=== PATIENT | male | born 1950 | race Caucasian/White ===

== ENCOUNTER 2016-07-20 01:50 | Inpatient (IN) | payer OTHER, MEDICARE ==
[2016-07-20] VITALS (31 sets, daily range): BP systolic 128–184; BP diastolic 58–89; PULSE 74–122; RESP 14–26; TEMP 97.7–98.7; O2SAT 90–98
[~2016-07-20] VITALS: Ht 188 cm; Wt 156.7 kg
[~2016-07-20 01:50] MED LIST: AMLO10 PO; DULO30 PO; LEVEMIR SQ; LORTA5 PO; LOSA25TA31 PO; LYRI200C PO; SYMB160A INH; VENTAER INH
[2016-07-20] MEDS ORDERED: LEVEMIR SQ (02:02)
[2016-07-20] MEDS ORDERED: VENTAER INH (02:02)
[2016-07-20] MEDS ORDERED: DULO1CAP2 PO (02:02)
[2016-07-20] MEDS ORDERED: COZA25TA PO (02:02)
[2016-07-20] MEDS ORDERED: SYMB160A INH (02:02)
[2016-07-20] MEDS ORDERED: LYRI200C PO (02:02)
[2016-07-20] MEDS ORDERED: LISI40TA PO (02:10)
[2016-07-20] MEDS: RESP: ALBUTEROL 2.5 MG/IPRATROPIUM 0.5 MG NEB (SCH) INH ×5 (02:29→20:41)
[2016-07-20] MEDS ORDERED: SODIUM CHLORIDE 0.9% FLUSH 5 ML FLUSH IVF PRN (02:30)
[2016-07-20] MEDS ORDERED: AZITHROMYCIN INJ 500 MG in SODIUM CHLOR 0.9% 250 ML INJ 250 ML IV ONE (02:30)
[2016-07-20] MEDS ORDERED: PREGABALIN 100 MG CAP PO ONE (02:30)
[2016-07-20] MEDS ORDERED: LORazepam 2 MG/ML VIAL IV PUSH ONE (02:30)
[2016-07-20] MEDS ORDERED: cefTRIAXone INJ 1,000 MG in SODIUM CHLORIDE 0.9% INJ 100 ML IV ONE (02:30)
--- NOTE | 2016-07-20 02:30 | PD ---
HPI Chief Complaint: Respiratory Distress Time Seen by Provider: 01:57 Travel History International Travel<30 days: No Contact w/Intl Traveler<30days: No Traveled to known affect area: No History of Present Illness HPI The patient is a 66 year old male who presents to the [facility] emergency department with a history of shortness of breath that he reports began yesterday evening. The patient reports that over the last 2 days he has not been able to take his anxiety medication and his diabetic neuropathy medication. He reports that these 2 medications are usually kept together and have been misplaced in his apartment. The patient reports that he has had a cough over the past week that intermittently productive of yellow sputum. He denies having any fevers. He denies having any nausea, vomiting, or diarrhea, however his stool has been slightly loose compared to usual. The patient reports that his blood sugar has been ranging between the mid 200s to high 200s. He reports that he usually has better control of his blood sugar. The patient reports having a history of asthma, bronchitis, COPD. He denies having any prior history of myocardial infarction or congestive heart failure. The patient reports that his anxiety has been difficult to control since losing his Duloxetine. The patient denies any neck pain, chest pain, abdominal pain, urinary symptoms, or neurologic symptoms. The patient was brought in by ambulance services. The patient was noted to have O2 saturations on room air of 88%. The patient was given a nebulizer treatment of albuterol 1. The patient was given Solu-Medrol 125 mg IV. PFS Past Medical History Narrative Medical The patient's past medical history is significant for asthma, bronchitis, COPD, diabetic neuropathy, anxiety disorder, hypertension, history of skin cancer. Hx Anticoagulant Therapy: No Arthritis: Yes Asthma: Yes Autoimmune Disease: No Anxiety: Yes Depression: Yes Heart Rhythm Problems: No Cancer: Yes (skin cancer) Cardiovascular Problems: Yes High Cholesterol: No Chemotherapy: No Chest Pain: No Congestive Heart Failure: No COPD: Yes Cerebrovascular Accident: No Diabetes: Yes (insulin) Patient Takes Glucophage: No Diminished Hearing: No Endocrine: No Gastrointestinal Disorders: Yes (abdominal hernia) GERD: No Genitourinary: Yes Headaches: No Hiatal Hernia: No Hypertension: Yes Immune Disorder: No Implanted Vascular Access Dvce: No Kidney Stones: Yes Musculoskeletal: Yes Neurologic: No Psychiatric: No Reproductive: No Respiratory: No Integumentary: Yes (abscess left groin 4 years ago) Migraines: No Pneumonia: Yes Radiation Therapy: No Renal Failure: No Seizures: No Sickle Cell Disease: No Sleep Apnea: No Thyroid Disease: No Ulcer: No Tetanus Vaccination: < 5 Years Influenza Vaccination: Yes Past Surgical History Narrative Surgical The patient has a history of a right great toe and forefoot amputation, history of inguinal hernia repair, knee arthroscopy. Abdominal Surgery: Yes (LEFT INGUINAL HERNIA REPAIR: INFANCY) AICD: No Arteriovenous Shunt: No Ear Surgery: No Endocrine Surgery: No Eye Surgery: No Genitourinary Surgery: No Gynecologic Surgery: No Insulin Pump: No Joint Replacement: Yes (LEFT KNEE ARTHROSCOPY: 1987) Oral Surgery: No Pacemaker: No Thoracic Surgery: No Other Surgery: Yes (right amputated great toe) Social History Alcohol Use: No Tobacco Use: No (QUIT IN 2000- hx of 3 ppd for 36 yrs) Substance Use: No Allergies-Medications (Allergen,Severity, Reaction): Coded Allergies: *MDRO Multi-Drug Resistant Organism (Verified Adverse Reaction, Unknown, ) MRSA (wounds) - 04/28/11; 05/02/13 MRSA PCR negative - 10/26/15 & 10/29/15 Cleared per Infection Control Reported Meds & Prescriptions Reported Meds & Active Scripts Active Reported Lisinopril 40 Mg Tab 40 Mg PO DAILY Lyrica (Pregabalin) 200 Mg Cap 200 Mg PO TID Cozaar (Losartan Potassium) 25 Mg Tab 25 Mg PO DAILY Levemir Inj (Insulin Detemir) 1,000 unit/ 10 ML Vial 30 Units SQ BID Do not mix with any other Insulin. Duloxetine DR (Duloxetine HCl) 30 Mg Capdr 30 Mg PO DAILY Symbicort Inh (Budesonide/Formoterol Fumarate) 160-4.5 Mcg/Act Aero 2 Puff INH Q12HR Ventolin Hfa 18 GM Inh (Albuterol Sulfate) 90 Mcg/Act Aer 2 Puff INH Q4H PRN Review of Systems Except as stated in HPI: all other systems reviewed are Neg General / Constitutional: No: Fever Eyes: No: Visual changes HENT: No: Headaches Cardiovascular: Positive: Dyspnea on exertion, No: Chest Pain or Discomfort Respiratory: Positive: Cough, Shortness of Breath, Wheezing Gastrointestinal: Positive: Changes in Bowel Habits (softer than usual), No: Nausea, Vomiting, Diarrhea, Abdominal Pain, Indigestion, Loss of Appetite Genitourinary: No: Dysuria Musculoskeletal: No: Pain Skin: No Rash Neurologic: No: Weakness, Focal Abnormalities, Coordination Problem, Change in Mentation, Slurred Speech, Sensory Disturbance Psychiatric: No: Depression Endocrine: No: Polydipsia Hematologic/Lymphatic: No: Easy Bruising Physical Exam Narrative General: The patient is a well-developed, morbidly obese male, short of breath on examination with conversational dyspnea, sitting up on the side of the bed on my arrival. Head and Neck exam: Head is normocephalic atraumatic. Eyes: EOMI, pupils are equal round and reactive to light. Nose: Midline septum with pink mucous membranes Mouth: Dentition unremarkable. Moist mucus membranes. Posterior oropharynx is not erythematous. No tonsillar hypertrophy. Uvula midline. Airway patent. Neck: No palpable lymphadenopathy. No nuchal rigidity. No thyromegaly. Cardiovascular: Sinus tachycardia in the 120s without murmurs, gallops, or rubs. No pulse deficit to the extremities and simultaneous auscultation and palpation of his radial artery. Lungs: Poor air movement bilaterally with a soft expiratory wheezes audible in the right lung field. No rhonchi or crackles are audible. Abdomen: Soft, without tenderness to palpation in all 4 quadrants of the abdomen. No guarding, rebound, or rigidity. Normal bowel sounds are audible. Extremities: No clubbing or cyanosis. The patient has trace pedal edema. 2+ pulses in bilateral upper extremities. Back: No spinous process tenderness to palpation. No costovertebral angle tenderness to palpation. Neurologic Exam: Grossly nonfocal. Skin Exam: No rash noted. Intact skin that is warm and dry. Data Data Last Documented VS Vital Signs Date Time Temp Pulse Resp B/P Pulse Ox O2 Delivery O2 Flow Rate FiO2 07/20/16 04:00 122 26 136/76 97 BiPAP 07/20/16 03:54 4.00 07/20/16 02:45 50 07/20/16 01:53 98.7 Orders Complete Blood Count With Diff (07/20/16 02:16) Comprehensive Metabolic Panel (07/20/16 02:16) B-Type Natriuretic Peptide (07/20/16 02:16) Act Partial Throm Time (Ptt) (07/20/16 02:16) Prothrombin Time / Inr (Pt) (07/20/16 02:16) Magnesium (Mg) (07/20/16 02:16) Ckmb (Isoenzyme) Profile (07/20/16 02:16) Troponin I (07/20/16 02:16) Arterial Blood Gas (Abg) (07/20/16 02:16) Blood Culture (07/20/16 02:16) Iv Access Insert/Monitor (07/20/16 02:16) Electrocardiogram (07/20/16 02:16) Ecg Monitoring (07/20/16 02:16) Oximetry (07/20/16 02:16) Oxygen Administration (07/20/16 02:16) Chest, Single Ap (07/20/16 02:16) Sodium Chloride 0.9% Flush (Ns Flush) (07/20/16 02:30) Albuterol-Ipratropium Neb (Duoneb Neb) (07/20/16 02:30) Resp Bipap / Cpap Non Invas Vt (07/20/16 02:16) Lactic Acid Sepsis Protocol (07/20/16 02:16) Ceftriaxone Inj (Rocephin Inj) (07/20/16 02:30) Azithromycin Inj (Zithromax Inj) (07/20/16 02:30) Lorazepam Inj (Ativan Inj) (07/20/16 02:30) Pregabalin (Lyrica) (07/20/16 02:30) CKMB (07/20/16 02:20) CKMB% (07/20/16 02:20) Sodium Chlor 0.9% 1000 Ml Inj (Ns 1000 M (07/20/16 03:45) Albuterol-Ipratropium Neb (Duoneb Neb) (07/20/16 04:30) Albuterol Neb (Albuterol Neb) (07/20/16 04:30) Methylprednisolone So Succ Inj (Solumedr (07/20/16 05:00) Ceftriaxone Inj (Rocephin Inj) (07/21/16 03:00) Sputum Culture And Gram Stain (07/20/16 04:22) Influenzae A/B Antigen (07/20/16 04:22) Azithromycin Inj (Zithromax Inj) (07/21/16 04:00) ^ Other Nursing Orders (07/20/16 04:26) Consult Pulmonology (07/20/16 ) Magnesium Oxide (Mag-Ox) (07/20/16 09:00) Magnesium Sulfate 1 Gm Premix (Magnesium (07/20/16 05:00) Bedside Glucose ELDER.AC&HS&03 (07/20/16 04:26) ^ Blood Glucose Goal (Criteria (07/20/16 04:26) ^ Hypoglycemia 51 - 69 Mg/Dl (07/20/16 04:26) ^ Hypoglycemia 50 Mg/Dl Or < (07/20/16 04:26) ^ Notify Dr: Other (07/20/16 04:26) Dextrose 50% In Rozina (Vial) Inj (D50w (Vi (07/20/16 04:30) Glucagon Inj (Glucagon Inj) (07/20/16 04:30) Insulin Aspart Supplemtl Scale (Novolog (07/20/16 07:00) Admit To Inpatient (07/20/16 ) Vital Signs (Adult) Q4H (07/20/16 04:28) Activity Oob With Assistance (07/20/16 04:28) Gas Appliance Servicer / Telemetry .CONTINUOUS (07/20/16 04:28) Intake + Output ELDER.QSHIFT (07/20/16 04:28) Diet 1800 Ada Cons Carb (07/20/16 Breakfast) Diet Heart Healthy (07/20/16 Breakfast) Sodium Chlor 0.9% 1000 Ml Inj (Ns 1000 M (07/20/16 04:28) Sodium Chloride 0.9% Flush (Ns Flush) (07/20/16 04:30) Sodium Chloride 0.9% Flush (Ns Flush) (07/20/16 09:00) Acetaminophen (Tylenol) (07/20/16 04:30) Ondansetron Inj (Zofran Inj) (07/20/16 04:30) Bisacodyl Supp (Dulcolax Supp) (07/20/16 04:30) Docusate Sodium (Colace) (07/20/16 09:00) Sennosides (Senokot) (07/20/16 04:30) Basic Metabolic Panel (Bmp) (07/21/16 06:00) Resp Oxygen Ramiro C Titrat 1-4 L (07/20/16 ) Case Management Consult (07/20/16 04:28) Heparin Inj (Heparin Inj) (07/20/16 09:00) Scd Bilateral/Knee High ELDER.BID (07/20/16 04:28) Acetaminophen (Tylenol) (07/20/16 04:30) Naloxone Inj (Narcan Inj) (07/20/16 04:30) Inpatient Certification (07/20/16 ) Admit Order (Ed Use Only) (07/20/16 04:30) Sodium Chlorid 0.9% 500 Ml Inj (Ns 500 M (07/20/16 04:45) Budeson-Formot 160-4.5 Mg Inh (Symbicort (07/20/16 09:00) Duloxetine Dr (Cymbalta Dr) (07/20/16 09:00) Insulin Detemir Inj (Levemir Inj) (07/20/16 09:00) Pregabalin (Lyrica) (07/20/16 09:00) Labs Laboratory Tests Test 07/20/16 07/20/16 02:20 04:30 White Blood Count 11.9 TH/MM3 Red Blood Count 5.01 MIL/MM3 Hemoglobin 14.2 GM/DL Hematocrit 42.9 % Mean Corpuscular Volume 85.7 FL Mean Corpuscular Hemoglobin 28.3 PG Mean Corpuscular Hemoglobin 33.0 % Concent Red Cell Distribution Width 16.0 % Platelet Count 204 TH/MM3 Mean Platelet Volume 9.4 FL Neutrophils (%) (Auto) 88.0 % Lymphocytes (%) (Auto) 4.6 % Monocytes (%) (Auto) 6.0 % Eosinophils (%) (Auto) 0.7 % Basophils (%) (Auto) 0.7 % Neutrophils # (Auto) 10.5 TH/MM3 Lymphocytes # (Auto) 0.6 TH/MM3 Monocytes # (Auto) 0.7 TH/MM3 Eosinophils # (Auto) 0.1 TH/MM3 Basophils # (Auto) 0.1 TH/MM3 CBC Comment DIFF FINAL Differential Comment Prothrombin Time 11.1 SEC Prothromb Time International 1.0 RATIO Ratio Activated Partial 27.2 SEC Thromboplast Time Sodium Level 142 MEQ/L Potassium Level 3.8 MEQ/L Chloride Level 106 MEQ/L Carbon Dioxide Level 19.3 MEQ/L Anion Gap 17 MEQ/L Blood Urea Nitrogen 20 MG/DL Creatinine 1.35 MG/DL Estimat Glomerular Filtration 53 ML/MIN Rate Random Glucose 301 MG/DL Lactic Acid Level 4.6 mmol/L 2.3 mmol/L Calcium Level 9.4 MG/DL Magnesium Level 1.4 MG/DL Total Bilirubin 0.8 MG/DL Aspartate Amino Transf 13 U/L (AST/SGOT) Alanine Aminotransferase 21 U/L (ALT/SGPT) Alkaline Phosphatase 110 U/L Total Creatine Kinase 278 U/L Creatine Kinase MB 2.1 NG/ML Troponin I LESS THAN 0.02 NG/ML B-Type Natriuretic Peptide 31 PG/ML Total Protein 7.2 GM/DL Albumin 3.7 GM/DL [facility] Medical Decision Making Medical Screen Exam Complete: Yes Emergency Medical Condition: Yes Medical Record Reviewed: Yes Interpretation(s) Laboratory Tests Test 07/20/16 07/20/16 02:20 04:30 White Blood Count 11.9 TH/MM3 Red Blood Count 5.01 MIL/MM3 Hemoglobin 14.2 GM/DL Hematocrit 42.9 % Mean Corpuscular Volume 85.7 FL Mean Corpuscular Hemoglobin 28.3 PG Mean Corpuscular Hemoglobin 33.0 % Concent Red Cell Distribution Width 16.0 % Platelet Count 204 TH/MM3 Mean Platelet Volume 9.4 FL Neutrophils (%) (Auto) 88.0 % Lymphocytes (%) (Auto) 4.6 % Monocytes (%) (Auto) 6.0 % Eosinophils (%) (Auto) 0.7 % Basophils (%) (Auto) 0.7 % Neutrophils # (Auto) 10.5 TH/MM3 Lymphocytes # (Auto) 0.6 TH/MM3 Monocytes # (Auto) 0.7 TH/MM3 Eosinophils # (Auto) 0.1 TH/MM3 Basophils # (Auto) 0.1 TH/MM3 CBC Comment DIFF FINAL Differential Comment Prothrombin Time 11.1 SEC Prothromb Time International 1.0 RATIO Ratio Activated Partial 27.2 SEC Thromboplast Time Sodium Level 142 MEQ/L Potassium Level 3.8 MEQ/L Chloride Level 106 MEQ/L Carbon Dioxide Level 19.3 MEQ/L Anion Gap 17 MEQ/L Blood Urea Nitrogen 20 MG/DL Creatinine 1.35 MG/DL Estimat Glomerular Filtration 53 ML/MIN Rate Random Glucose 301 MG/DL Lactic Acid Level 4.6 mmol/L 2.3 mmol/L Calcium Level 9.4 MG/DL Magnesium Level 1.4 MG/DL Total Bilirubin 0.8 MG/DL Aspartate Amino Transf 13 U/L (AST/SGOT) Alanine Aminotransferase 21 U/L (ALT/SGPT) Alkaline Phosphatase 110 U/L Total Creatine Kinase 278 U/L Creatine Kinase MB 2.1 NG/ML Troponin I LESS THAN 0.02 NG/ML B-Type Natriuretic Peptide 31 PG/ML Total Protein 7.2 GM/DL Albumin 3.7 GM/DL Last Impressions Chest X-Ray 07/20/16 0216 Signed Impressions: Service Date/Time: Wednesday, July 20, 2016 02:33 - CONCLUSION: 1. Minimal basilar atelectasis. Exam otherwise unremarkable. Jag Sutherland MD Differential Diagnosis COPD exacerbation, versus pneumonia, versus acute coronary syndrome, versus new- onset congestive heart failure Narrative Course During the course of the patients emergency department visit, the patients history, examination, and differential diagnosis were reviewed with the patient. The patient had IV access obtained and blood work sent for analysis. The patient was placed on a desk monitor with oximetry and blood pressure monitoring. An EKG was done on arrival. The patient's EKG shows a sinus tachycardia with occasional premature ventricular contractions, no acute ST segment elevation is noted. The patient was started on BiPAP. The patient was provided Ativan 0.5 mg IV times one for anxiety, Lyrica 200 mg by mouth 1 for symptoms of diabetic neuropathy, DuoNeb 3 were administered, Rocephin 1 g IV was provided, azithromycin 500 mg IV was given times one. The patient's lactic acid came back elevated I suspect that this is related to his respiratory issues and hypoxemia, however after his BNP came back within normal limits patient was given normal saline 1 L IV fluid bolus. The patients laboratory studies were reviewed and remarkable for a white count of 11.9, hemoglobin 14.2, platelets 204 with 88 neutrophils, 4.6, CMP is remarkable for CO2 19.3, anion gap of 17, BUN 20, creatinine 1.35, glucose 301, magnesium 1.4, AST 13, initial set of cardiac enzymes are negative, BNP is 31, lactic acid level is 4.6, PT of 11.1, INR 1.0, PTT 27.2. Radiology studies were reviewed and remarkable for a chest x-ray reveals a minimal Beseler atelectasis, otherwise exam unremarkable. The patient will be admitted to the hospital for a COPD exacerbation and hypoxemia on room air. The patients results were discussed with the patient, including the plan of care. I explained that further testing and/ or monitoring is indicated based on the patients history, examination, and/ or laboratory findings. Therefore, I recommended admission for additional evaluation. The patient expressed understanding and was agreeable with this plan. The patient was admitted to the hospital in guarded condition and [facility] Critical Care Narrative Aggregate critical care time was 35 minutes. Time to perform other separately billable procedures was not included in the critical care time. My time did not include minutes spent treating any other patients simultaneously or on activities that did not directly contribute to the patient's treatment. The services I provided to this patient were to treat and/or prevent clinically significant deterioration that could result in: Respiratory failure, cardiovascular collapse, encephalopathy I provided critical care services requiring my management, as noted below: Chart data review, documentation time, medication orders and management, vital sign assessments/reviewing monitor data, ordering and reviewing lab tests, ordering and interpreting/reviewing x-rays and diagnostic studies, care of the patient and discussion of the patient with the admitting physicians. Sepsis Criteria SIRS Criteria (2 or more): Heart rate over 90, RR > 20 or PaCO2 < 32 Severe Sepsis (+one): Lactate >2 Criteria Outcome: Meets SIRS criteria Physician Communication Physician Communication The patient's case was discussed with Dr. Lopez who did agree to admit the patient for further evaluation and treatment at this time. Diagnosis Primary Impression: Hypoxemia Additional Impression: COPD with exacerbation Admitting Information Admitting Physician Requests: Lise Dumont MD Jul 20, 2016 02:30
[2016-07-20 02:38] LABS: AUTOMATED NEUTROPHIL # 10.5 TH/MM3 (1.8-7.7); BASOPHIL # 0.1 TH/MM3 (0-0.2); BASOPHIL % 0.7 % (0.0-2.0); EOSINOPHIL # 0.1 TH/MM3 (0-0.4); EOSINOPHIL % 0.7 % (0.0-4.0); HEMATOCRIT 42.9 % (39.0-51.0); HEMO FLAGS DIFF FINAL; LYMPH % 4.6 % (9.0-44.0); LYMPHOCYTE # 0.6 TH/MM3 (1.0-4.8); MEAN CELL VOLUME 85.7 FL (80.0-100.0); MEAN CORPUSCULAR HEMOGLOBIN 28.3 PG (27.0-34.0); PLATELET COUNT 204 TH/MM3 (150-450); RED BLOOD COUNT 5.01 MIL/MM3 (4.50-5.90); WHITE BLOOD COUNT 11.9 TH/MM3 (4.0-11.0)
[2016-07-20 02:53] LABS: APTT (PATIENT) 27.2 SEC (24.3-30.1); PROTHROMBIN TIME - PATIENT 11.1 SEC (9.8-11.6)
--- NOTE | 2016-07-20 02:58 | RADRPT ---
EXAM DATE/TIME: 07/20/2016 02:33 [facility] COMPARISON: CHEST SINGLE AP, January 18, 2016, 22:51. INDICATIONS : Short of breath. MEDICAL HISTORY : Chronic obstructive pulmonary disease. Diabetes mellitus type II. Hypertension. Asthma. SURGICAL HISTORY : Inguinal hernia repair. ENCOUNTER: Initial ACUITY: 3 days PAIN SCORE: 0/10 LOCATION: Bilateral chest FINDINGS: A single view of the chest demonstrates the lungs to be symmetrically aerated without evidence of mas s, infiltrate or effusion. Minimal basilar atelectasis. The cardiomediastinal contours are unremarkab le. Osseous structures are intact. CONCLUSION: 1. Minimal basilar atelectasis. Exam otherwise unremarkable. Jag Sutherland MD on July 20, 2016 at 2:55 Board Certified Radiologist. This report was verified electronically.
[2016-07-20 03:29] LABS: ALT (GPT) 21 U/L (12-78); ANION GAP 17 MEQ/L (5-15); AST (GOT) 13 U/L (15-37); BICARBONATE 19.3 MEQ/L (21.0-32.0); BLOOD UREA NITROGEN 20 MG/DL (7-18); CHLORIDE 106 MEQ/L (98-107); GLOMERULAR FILTRATION RATE 53 ML/MIN (>89); MAGNESIUM 1.4 MG/DL (1.5-2.5); POTASSIUM 3.8 MEQ/L (3.5-5.1); SODIUM (NA) 142 MEQ/L (136-145)
[2016-07-20 03:32] LABS: ALKALINE PHOSPHATASE 110 U/L (45-117); CREATINE KINASE 278 U/L (39-308); TOTAL BILIRUBIN ADULT 0.8 MG/DL (0.2-1.0)
[2016-07-20 03:45] LABS: CKMB 2.1 NG/ML (0.5-3.6)
[2016-07-20] MEDS ORDERED: SODIUM CHLOR 0.9% 1000 ML INJ 1,000 ML IV ONE (03:45)
[2016-07-20] MEDS ORDERED: SENNOSIDES 8.6 MG TAB PO PRN (04:30)
[2016-07-20] MEDS ORDERED: RESP: ALBUTEROL 2.5 MG/3 ML NEB (PRN) INH (04:30)
[2016-07-20] MEDS ORDERED: ONDANSETRON HCL 4 MG/2 ML VIAL IVP PRN (04:30)
[2016-07-20] MEDS ORDERED: BISACODYL 10 MG SUPP PR PRN (04:30)
[2016-07-20] MEDS ORDERED: GLUCAGON 1 MG/ML VIAL OTHER PRN ×2 (04:30→11:45)
[2016-07-20] MEDS ORDERED: SODIUM CHLORIDE 0.9% FLUSH 5 ML FLUSH FLUSH PRN (04:30)
[2016-07-20] MEDS ORDERED: DEXTROSE 50% IN WATER 50 ML VIAL(D50) IV PUSH PRN ×2 (04:30→11:45)
[2016-07-20] MEDS ORDERED: ACETAMINOPHEN 325 MG TAB PO PRN (04:30)
[2016-07-20] MEDS ORDERED: NALOXONE HCL 0.4 MG/ML AMP IV PRN (04:30)
[2016-07-20 04:32] LABS: LACTIC ACID GHOST NOT REPORTABLE
[2016-07-20] MEDS ORDERED: hydrALAZINE HCL 20 MG/ML VIAL IV PRN (04:45)
[2016-07-20] MEDS ORDERED: cloNIDine HCL 0.1 MG TAB PO PRN (04:45)
[2016-07-20] MEDS ORDERED: SODIUM CHLORID 0.9% 500 ML INJ 500 ML IV ONE (04:45)
[2016-07-20] MEDS: SODIUM CHLOR 0.9% 1000 ML INJ 1,000 ML IV SCH (04:51)
--- NOTE | 2016-07-20 04:51 | HHI.HP ---
[facility] Maine Frausto MD Admission Diagnosis COPD exacerbation, hypoxemia on RA, lactic acidosis Diagnoses: Chief Complaint: sob Travel History International Travel<30 Days: No Contact w/Intl Traveler <30 Da: No Traveled to Known Affected Are: No History of Present Illness 66 y/o male with a history of COPD, Type 2 DM, neuropathy, CKD stage II, Asthma , anxiety, hyperlipidemia and obesity presented to the ED with complaints of SOB for the last few days. Patient states he has been out of his medications for the last 3 days and feels very anxious and short of breath. He states he has had a couple of episodes of wheezing and has increased edema in his lower extremities. He states for the last few days he has had a cough with yellow sputum production. He denies any fever, chills or chest pain. Arrival to the ED he was found to have O2 sats in the 70's, he was then placed on bipap. At one time he was weened down to 4L NC but then became hypoxic again and was placed back on bipap. When patient was assessed he was on bipap and states he was feeling better. 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 Review of Systems Constitutional: DENIES: Fever, Chills Respiratory: COMPLAINS OF: Cough, Sputum production, Shortness of breath Cardiovascular: COMPLAINS OF: Lower Extremity Edema, DENIES: Chest pain Gastrointestinal: DENIES: Abdominal pain, Constipation, Diarrhea, Nausea, Vomiting Genitourinary: DENIES: Hematuria, Dysuria Musculoskeletal: DENIES: Back pain, Neck pain Integumentary: DENIES: Rash Hematologic/lymphatic: DENIES: Lymphadenopathy Immunologic/allergic: DENIES: Urticaria Neurologic: DENIES: Headache Past Family Social History Past Medical History Type 2 diabetes mellitus Hypertension Morbid obesity Chronic obstructive pulmonary disease Asthma since childhood Anxiety/ depression Hyperlipidemia Chronic kidney disease, stage II Past Surgical History Left inguinal hernia repair Left groin abscess removal Cyst on back removed Left knee arthroscopic surgery Squamous cell carcinoma removed Reported Medications Reported Meds & Active Scripts Active Reported Lisinopril 40 Mg Tab 40 Mg PO DAILY Lyrica (Pregabalin) 200 Mg Cap 200 Mg PO TID Cozaar (Losartan Potassium) 25 Mg Tab 25 Mg PO DAILY Levemir Inj (Insulin Detemir) 1,000 unit/ 10 ML Vial 30 Units SQ BID Do not mix with any other Insulin. Duloxetine DR (Duloxetine HCl) 30 Mg Capdr 30 Mg PO DAILY Symbicort Inh (Budesonide/Formoterol Fumarate) 160-4.5 Mcg/Act Aero 2 Puff INH Q12HR Ventolin Hfa 18 GM Inh (Albuterol Sulfate) 90 Mcg/Act Aer 2 Puff INH Q4H PRN Allergies: Coded Allergies: *MDRO Multi-Drug Resistant Organism (Verified Adverse Reaction, Unknown, ) MRSA (wounds) - 04/28/11; 05/02/13 MRSA PCR negative - 10/26/15 & 10/29/15 Cleared per Infection Control Active Ordered Medications Current Medications Medications (Trade) Dose Ordered Sig/Uma Route Start Time Stop Time Status Last Admin Methylprednisolone Sodium Succinate 60 mg 60 mg Q6H IVP 07/20/16 05:00 07/20/16 05:02 Ceftriaxone Sodium 1000 mg/ Sodium Chloride 100 ml @ 200 mls/hr Q24H IV 07/21/16 03:00 (Zithromax Inj/ NS 250 ml Inj) 250 ml @ 250 mls/hr Q24H IV 07/21/16 04:00 Magnesium Oxide 400 mg 400 mg Q12HR PO 07/20/16 09:00 (Magnesium Sulfate 1 Gm Premix) 100 ml @ 100 mls/hr ONCE ONCE IV 07/20/16 05:00 07/20/16 05:59 07/20/16 05:01 (D50w (Vial) Inj) 25 ml UNSCH PRN IV PUSH 07/20/16 04:30 Glucagon 1 mg 1 mg UNSCH PRN OTHER 07/20/16 04:30 (NS 1000 ml Inj) 1,000 ml @ 100 mls/hr Q10H IV 07/20/16 04:28 07/20/16 04:51 (NS Flush) 2 ml UNSCH PRN FLUSH 07/20/16 04:30 (NS Flush) 2 ml BID FLUSH 07/20/16 09:00 (Tylenol) 650 mg Q4H PRN PO 07/20/16 04:30 (Zofran Inj) 4 mg Q6H PRN IVP 07/20/16 04:30 (Dulcolax Supp) 10 mg DAILY PRN AL 07/20/16 04:30 (Colace) 100 mg Q12H PO 07/20/16 09:00 (Senokot) 17.2 mg Q12H PRN PO 07/20/16 04:30 (Heparin Inj) 5,000 units Q12H SQ 07/20/16 09:00 (Tylenol) 650 mg Q6H PRN PO 07/20/16 04:30 Naloxone HCl 0.4 mg 0.4 mg UNSCH PRN IV 07/20/16 04:30 (NS 500 ml Inj) 500 ml @ 500 mls/hr BOLUS ONCE IV 07/20/16 04:45 07/20/16 05:44 07/20/16 04:50 (Symbicort 160-4.5 Inh) 2 puff Q12HR INH 07/20/16 09:00 (Cymbalta Dr) 30 mg DAILY PO 07/20/16 09:00 (Levemir Inj) 30 units BID SQ 07/20/16 09:00 (Lyrica) 200 mg TID PO 07/20/16 09:00 (Apresoline Inj) 10 mg Q6H PRN IV 07/20/16 04:45 (Catapres) 0.1 mg Q6H PRN PO 07/20/16 04:45 Family History Grandfather: heart palpitations Social History Tobacco use: denies Alcohol use: denies Illicit drug use: denies Physical Exam Vital Signs Vital Signs Date Time Temp Pulse Resp B/P Pulse Ox O2 Delivery O2 Flow Rate FiO2 07/20/16 03:54 94 Nasal Cannula 4.00 07/20/16 03:45 22 07/20/16 03:09 119 22 143/65 98 BiPAP 07/20/16 02:45 98 50 07/20/16 02:44 92 Nasal Cannula 5.00 07/20/16 02:31 90 Nasal Cannula 5 07/20/16 02:31 26 90 Nasal Cannula 5 07/20/16 02:05 122 30 90 Nasal Cannula 3 07/20/16 01:53 98.7 122 26 184/84 95 Physical Exam GENERAL: This is a well-nourished, Obese patient, in no apparent distress. SKIN: No rashes, ecchymoses or lesions. Cool and dry. HEAD: Atraumatic. Normocephalic. EYES: Pupils equal round and reactive. Extraocular motions intact. No scleral icterus. No injection or drainage. ENT: Nose without bleeding, purulent drainage or septal hematoma. Uvula midline. Airway patent. NECK: Trachea midline. No JVD CARDIOVASCULAR: Tachycardic rate and rhythm without murmurs, gallops, or rubs. RESPIRATORY: Bilateral expiratory wheezes, no rales, or rhonchi. GASTROINTESTINAL: Abdomen soft, non-tender, nondistended.. No guarding. MUSCULOSKELETAL:Trace lower extremity edema. No joint tenderness, effusion, or edema noted. No calf tenderness. NEUROLOGICAL: Awake and alert. Motor and sensory grossly within normal limits. Normal speech. Laboratory Laboratory Tests Test 07/20/16 02:20 White Blood Count 11.9 Red Blood Count 5.01 Hemoglobin 14.2 Hematocrit 42.9 Mean Corpuscular Volume 85.7 Mean Corpuscular Hemoglobin 28.3 Mean Corpuscular Hemoglobin 33.0 Concent Red Cell Distribution Width 16.0 Platelet Count 204 Mean Platelet Volume 9.4 Neutrophils (%) (Auto) 88.0 Lymphocytes (%) (Auto) 4.6 Monocytes (%) (Auto) 6.0 Eosinophils (%) (Auto) 0.7 Basophils (%) (Auto) 0.7 Neutrophils # (Auto) 10.5 Lymphocytes # (Auto) 0.6 Monocytes # (Auto) 0.7 Eosinophils # (Auto) 0.1 Basophils # (Auto) 0.1 CBC Comment DIFF FINAL Differential Comment Prothrombin Time 11.1 Prothromb Time International 1.0 Ratio Activated Partial 27.2 Thromboplast Time Sodium Level 142 Potassium Level 3.8 Chloride Level 106 Carbon Dioxide Level 19.3 Anion Gap 17 Blood Urea Nitrogen 20 Creatinine 1.35 Estimat Glomerular Filtration 53 Rate Random Glucose 301 Lactic Acid Level 4.6 Calcium Level 9.4 Magnesium Level 1.4 Total Bilirubin 0.8 Aspartate Amino Transf 13 (AST/SGOT) Alanine Aminotransferase 21 (ALT/SGPT) Alkaline Phosphatase 110 Total Creatine Kinase 278 Creatine Kinase MB 2.1 Troponin I LESS THAN 0.02 B-Type Natriuretic Peptide 31 Total Protein 7.2 Albumin 3.7 Date/Time Procedure Status Source Growth 07/20/16 02:20 Aerobic Blood Culture Received Blood Peripheral Pending 07/20/16 02:20 Anaerobic Blood Culture Received Blood Peripheral Pending Result Diagram: 07/20/1621907/20/16 022 Imaging EKG tracing interpreted by me with sinus tachycardia Chest x-ray image interpreted by me with no acute cardiopulmonary disease Last Impressions Chest X-Ray 07/20/16 0216 Signed Impressions: Service Date/Time: Wednesday, July 20, 2016 02:33 - CONCLUSION: 1. Minimal basilar atelectasis. Exam otherwise unremarkable. Jag Sutherland MD Assessment and Plan Problem List: (1) Acute respiratory failure ICD Code: J96.00 Status: Acute (2) Acute exacerbation of chronic obstructive pulmonary disease ICD Code: J44.1 Status: Acute (3) Lactic acid acidosis ICD Code: E87.2 Status: Acute (4) Leukocytosis ICD Code: D72.829 Status: Acute (5) Hypomagnesemia ICD Code: E83.42 Status: Acute (6) Hypertension ICD Code: I10 Status: Chronic (7) Diabetes ICD Code: E11.9 Status: Chronic (8) CKD (chronic kidney disease), stage II ICD Code: N18.2 Status: Chronic Assessment and Plan 66 y/o male with a history of COPD, Type 2 DM, neuropathy, CKD stage II, Asthma , anxiety, hyperlipidemia and obesity presented with: Acute respiratory failure/COPD exacerbation with acute bronchitis Images: Chest xray shows Minimal basilar atelectasis Labs: WBC 11.9, neutrophils 88% -Consult handle sander operator -Cont Bipap, wean as tolerated, patient will be admitted to [facility] -Solumedrol IV -Azithromycin and Rocephin IV -Duonebs ordered -Flu screen pending Lactic Acidosis, likely due to hypoxia Labs: Lactic 4.6, down to 2.3 -NS bolus given in ED, another ordered after last lactic drawn -Antibiotics as above Hypomagnesium Labs: Mag 1.4 -Supplement given and scheduled -Labs in AM HTN, chronic -Monitor vitals -apresoline, and clonidine prn -Hold home medications for now secondary to sepsis DM, chronic -Accu checks AC/HS with SSI -Restart home Levemir CKD, chronic stage III Labs: Creatine 1.3, baseline 2.0 -Home BP meds -Trend creatine -Avoid nephrotoxic drugs Neuropathy, chronic: reorder home medications Lyrica Anxiety, chronic: reorder home medications Cymbalta DVT prophylaxis: Heparin GI prophylaxis: Protonix Written by Deborah BURDEN, acting as scribe for Dr. Lopez on 07/20/16 at 0445. The documentation accurately reflects the work performed [id number] and decisions made by me and the physician Dr Lopez on 07/20/16. The documentation accurately reflects the work performed [id number] by me on at 06:48. Code Status Full Discussed Condition With Patient Physician Certification 2 Midnight Certification Type: Admission for Inpatient Services Order for Inpatient Services The services are ordered in accordance with Medicare regulations or non- Medicare payer requirements, as applicable. In the case of services not specified as inpatient-only, they are appropriately provided as inpatient services in accordance with the 2-midnight benchmark. Estimated LOS (days): 2 days is the estimated time the patient will need to remain in the hospital, assuming treatment plan goals are met and no additional complications. Post-Hospital Plan: Not yet determined Problem Qualifiers (1) Acute respiratory failure: Qualified Code: J96.01 - Acute respiratory failure with hypoxia (2) Diabetes: Deborah Santiago Jul 20, 2016 04:51 Minh Lopez MD Jul 20, 2016 06:50
[2016-07-20] MEDS ORDERED: MAGNESIUM SULFATE 1 GM PREMIX 100 ML IV ONE (05:00)
[2016-07-20] MEDS: methylPREDNISolone SOD SUCC 125 MG/2 ML VIAL IVP SCH ×4 (05:02→22:33)
[2016-07-20 06:22] LABS: BLOOD GAS CARBOXYHEMOGLOBIN 2.1 % (0-4); BLOOD GAS HCO3 18 mmol/L (22-26); BLOOD GAS O2 HGB SATURATION 86 % (90-100); BLOOD GAS OXYGEN CONTENT 17.8 Vol % (12.0-20.0); BLOOD GAS PCO2 33 mmHg (38-42); BLOOD GAS PO2 56 mmHG (61-120); BLOOD GAS TOTAL HGB 14.7 G/DL (12.0-16.0); TEMP CORR TO 98.6
[2016-07-20 06:23] LABS: DRAW SITE LT RADIAL; LITER FLOW 5 L/M; NUMBER OF ARTERIAL PUNCTURES 1; OXYGEN DEVICE NASAL CANNULA; STAT YES; ULNAR PULSE Y
[2016-07-20 06:25] LABS: BLOOD GAS BASE EXCESS -7.8 mmol/L (-2-2); BLOOD GAS HCO3 17 mmol/L (22-26); BLOOD GAS METHEMOGLOBIN 2.1 % (0-2); BLOOD GAS O2 HGB SATURATION 87 % (90-100); BLOOD GAS OXYGEN CONTENT 16.9 Vol % (12.0-20.0); BLOOD GAS PCO2 35 mmHg (38-42); BLOOD GAS PO2 64 mmHG (61-120); BLOOD GAS TOTAL HGB 13.8 G/DL (12.0-16.0); TEMP CORR TO 98.6
[2016-07-20 06:26] LABS: DRAW SITE RT RADIAL; LITER FLOW 4 L/M; NUMBER OF ARTERIAL PUNCTURES 2; OXYGEN DEVICE NASAL CANNULA; STAT YES; ULNAR PULSE Y
[2016-07-20] MEDS: INSULIN ASPART SUPPLEMENTAL SCALE SQ SCH ×4 (07:52→22:53)
--- NOTE | 2016-07-20 08:06 | HHI.PR ---
Subjective Remarks in no acute distress. however with sob and wheezing. no fever. Objective Vitals Vital Signs Date Time Temp Pulse Resp B/P Pulse Ox O2 Delivery O2 Flow Rate FiO2 07/20/16 07:10 86 18 93 Venturi Mask 6 07/20/16 07:10 87 18 148/72 93 Venturi Mask 6 07/20/16 06:44 98.5 100 22 128/58 91 Venturi Mask 07/20/16 05:14 98 50 07/20/16 05:00 104 22 134/60 96 Venturi Mask 07/20/16 04:00 122 26 136/76 97 BiPAP 07/20/16 03:54 94 Nasal Cannula 4.00 07/20/16 03:45 22 07/20/16 03:09 119 22 143/65 98 BiPAP 07/20/16 02:45 98 50 07/20/16 02:44 92 Nasal Cannula 5.00 07/20/16 02:31 90 Nasal Cannula 5 07/20/16 02:31 26 90 Nasal Cannula 5 07/20/16 02:05 122 30 90 Nasal Cannula 3 07/20/16 01:53 98.7 122 26 184/84 95 Result Diagram: 07/20/16 0220 07/20/160 Imaging Last Impressions Chest X-Ray 07/20/16215 Signed Impressions: Service Date/Time: Wednesday, July 20, 2016 02:33 - CONCLUSION: 1. Minimal basilar atelectasis. Exam otherwise unremarkable. Jag Sutherland MD Objective Remarks GENERAL: This is a well-nourished, well-developed patient, in no apparent distress. CARDIOVASCULAR: Regular rate and regular rhythm without murmurs, gallops, or rubs. RESPIRATORY: bilateral wheezing. GASTROINTESTINAL: Abdomen soft, non-tender, nondistended. Normal, active bowel sounds MUSCULOSKELETAL: Extremities without clubbing, cyanosis, or edema. NEURO: Alert & Oriented x4 to person, place, time, situation. Moves all ext x4 Procedures none Medications and IVs Current Medications IV Flush (NS Flush) 2 ml UNSCH PRN IVF FLUSH AFTER USING IV ACCESS; Start 07/20 at 02:30; Stop 07/20/16 at 05:00; Status DC Albuterol/ Ipratropium 1 ampule 1 ampule Q15M INH Last administered on 02:30; Start 07/20/16 at 02:30; Stop 07/20/16 at 03:01; Status DC Ceftriaxone Sodium 1000 mg/ Sodium Chloride 100 ml @ 200 mls/hr ONCE ONCE IV Last administered on 07/20/16 02:46; Start 07/20/16 at 02:30; Stop 07/20/16 at 02:59; Status DC Azithromycin/ Sodium Chloride (Zithromax Inj/ NS 250 ml Inj) 250 ml @ 250 mls/ hr ONCE ONCE IV Last administered on 07/20/16 03:09; Start 07/20/16 at 02:30 ; Stop 07/20/16 at 03:29; Status DC Lorazepam (Ativan Inj) 0.5 mg ONCE ONCE IV PUSH Last administered on 02:45; Start 07/20/16 at 02:30; Stop 07/20/16 at 02:31; Status DC Pregabalin 200 mg 200 mg ONCE ONCE PO Last administered on 07/20/16 02:45; Start 07/20/16 at 02:30; Stop 07/20/16 at 02:31; Status DC Sodium Chloride (NS 1000 ml Inj) 1,000 ml @ 1,000 mls/hr Q1H ONCE IV Last administered on 07/20/16 03:53; Start 07/20/16 at 03:45; Stop 07/20/16 at 04:46 ; Status DC Albuterol/ Ipratropium (Duoneb Neb) 1 ampule Q6HR NEB INH Last administered on 07/20/16 05:14; Start 07/20/16 at 04:30 Albuterol Sulfate (Albuterol Neb) 2.5 mg Q2HR NEB PRN INH SHORTNESS OF BREATH; Start 07/20/16 at 04:30 Methylprednisolone Sodium Succinate 60 mg 60 mg Q6H IVP Last administered on 05:02; Start 07/20/16 at 05:00 Ceftriaxone Sodium 1000 mg/ Sodium Chloride 100 ml @ 200 mls/hr Q24H IV ; Start 07/21/16 at 03:00 Azithromycin/ Sodium Chloride (Zithromax Inj/ NS 250 ml Inj) 250 ml @ 250 mls/ hr Q24H IV ; Start 07/21/16 at 04:00 Magnesium Oxide 400 mg 400 mg Q12HR PO ; Start 07/20/16 at 09:00 Magnesium Sulfate/ Dextrose (Magnesium Sulfate 1 Gm Premix) 100 ml @ 100 mls/ hr ONCE ONCE IV Last administered on 07/20/16 05:01; Start 07/20/16 at 05:00 ; Stop 07/20/16 at 05:59; Status DC Dextrose (D50w (Vial) Inj) 25 ml UNSCH PRN IV PUSH HYPOGLYCEMIA-SEE COMMENTS; Start 07/20/16 at 04:30 Glucagon (Glucagon Inj) 1 mg UNSCH PRN OTHER HYPOGLYCEMIA-SEE COMMENTS; Start 07/20/16 at 04:30 Insulin Aspart 1 1 ACHS SLIDING SCALE SQ Last administered on 07/20/16 07:52 ; Start 07/20/16 at 07:00 Sodium Chloride (NS 1000 ml Inj) 1,000 ml @ 100 mls/hr Q10H IV Last administered on 07/20/16 04:51; Start 07/20/16 at 04:28 IV Flush (NS Flush) 2 ml UNSCH PRN FLUSH FLUSH AFTER USING IV ACCESS; Start at 04:30 IV Flush (NS Flush) 2 ml BID FLUSH ; Start 07/20/16 at 09:00 Acetaminophen (Tylenol) 650 mg Q4H PRN PO TEMP > 100.4; Start 07/20/16 at 04:30 Ondansetron HCl (Zofran Inj) 4 mg Q6H PRN IVP NAUSEA OR VOMITING; Start at 04:30 Bisacodyl (Dulcolax Supp) 10 mg DAILY PRN MI CONSTIPATION; Start 07/20/16 at 04 :30 Docusate Sodium (Colace) 100 mg Q12H PO ; Start 07/20/16 at 09:00 Sennosides (Senokot) 17.2 mg Q12H PRN PO CONSTIPATION; Start 07/20/16 at 04:30 Heparin Sodium (Porcine) (Heparin Inj) 5,000 units Q12H SQ ; Start 07/20/16 at 09:00 Acetaminophen (Tylenol) 650 mg Q6H PRN PO PAIN SCALE 1 TO 2; Start 07/20/16 at 04:30 Naloxone HCl 0.4 mg 0.4 mg UNSCH PRN IV SEE LABEL COMMENTS; Start 07/20/16 at 04:30 Sodium Chloride (NS 500 ml Inj) 500 ml @ 500 mls/hr BOLUS ONCE IV Last administered on 07/20/16t 04:50; Start 07/20/16 at 04:45; Stop 07/20/16 at 05:44 ; Status DC Budesonide/ Formoterol Fumarate (Symbicort 160-4.5 Inh) 2 puff Q12HR INH ; Start 07/20/16 at 09:00 Duloxetine HCl (Cymbalta Dr) 30 mg DAILY PO ; Start 07/20/16 at 09:00 Insulin Detemir (Levemir Inj) 30 units BID SQ ; Start 07/20/16 at 09:00 Pregabalin (Lyrica) 200 mg TID PO ; Start 07/20/16 at 09:00 Hydralazine HCl (Apresoline Inj) 10 mg Q6H PRN IV SBP> OR = 180, DBP> OR = 100 ; Start 07/20/16 at 04:45 Clonidine (Catapres) 0.1 mg Q6H PRN PO SBP> OR = 180, DBP> OR = 100; Start at 04:45 Pantoprazole Sodium (Protonix Inj) 40 mg Q24H IV PUSH ; Start 07/20/16 at 09:00 A/P Assessment and Plan A/P Acute respiratory failure/COPD exacerbation Images: Chest xray shows Minimal basilar atelectasis -Consult customer professional -Cont Bipap, wean as tolerated, patient will be admitted to [facility] -Solumedrol IV -Azithromycin and Rocephin IV -Duonebs ordered -Flu screen pending Lactic Acidosis, likely due to hypoxia Labs: Lactic 4.6, down to 2.3 -NS bolus given in ED -Antibiotics as above Hypomagnesium Labs: Mag 1.4 -Supplement given and scheduled -Labs in AM HTN, chronic -Monitor vitals -apresoline, and clonidine prn -Hold home medications for now secondary to sepsis DM, chronic -Accu checks AC/HS with SSI -Restarted home Levemir CKD, chronic stage III Labs: Creatine 1.3, baseline 2.0 -Home BP meds -Trend creatine -Avoid nephrotoxic drugs Neuropathy, chronic: reordered home medications Lyrica Anxiety, chronic: reordered home medications Cymbalta DVT prophylaxis: Heparin GI prophylaxis: Protonix Shannan Taveras MD Jul 20, 2016 08:06
[2016-07-20] MEDS: INSULIN DETEMIR 100 UNITS/ML VIAL SQ SCH ×2 (09:00→22:31)
[2016-07-20] MEDS: MAGNESIUM OXIDE 400 MG TAB PO SCH ×2 (10:27→22:30)
[2016-07-20] MEDS: DOCUSATE SODIUM 100 MG CAP PO SCH ×2 (10:27→21:00)
[2016-07-20] MEDS: HEPARIN SODIUM - SQ 10,000 UNITS/ML VIAL SQ SCH ×2 (10:27→22:31)
[2016-07-20] MEDS: DULoxetine HCl DR 30 MG CAP PO SCH (10:27)
[2016-07-20] MEDS: PREGABALIN 100 MG CAP PO SCH ×3 (10:28→18:52)
[2016-07-20] MEDS: SODIUM CHLORIDE 0.9% FLUSH 5 ML FLUSH FLUSH SCH ×2 (10:28→22:33)
--- NOTE | 2016-07-20 14:46 | EKG ---
Date Performed: 07/20/2016 Time Performed: 02:16:29 PTAGE: 66 years EKG: SINUS TACHYCARDIA WITH OCCASIONAL VENTRICULAR PREMATURE COMPLEXES ABNORMAL RHYTHM ECG Aashish red to the PREVIOUS TRACING , tachycardia is new, as are nonspecific ST-T wave changes Clinical nini elation is recommended PREVIOUS TRACIN03/04/2016 13.59 DOCTOR: Glenroy Watson Interpretating Date/Time 07/20/2016 14:42:43
[2016-07-20] MEDS: PANTOPRAZOLE SODIUM 40 MG VIAL IV PUSH SCH (15:55)
[2016-07-20] MEDS: BUDESONIDE-FORMOTEROL 160/4.5 MCG INHALER INH SCH ×2 (15:56→22:32)
--- NOTE | 2016-07-20 18:51 | MB ---
cc: SHONNA,SHONNA DATE OF CONSULTATION 07/20/16 REASON FOR CONSULTATION COPD exacerbation. HISTORY OF PRESENT ILLNESS Mr. Borrego is a 66-year-old male who is morbidly obese, known history of COPD with asthma component, diabetes mellitus, chronic kidney disease, admitted with increasing shortness of breath, cough, expectoration of whitish mucoid sputum, chest wheeze, progressively worse despite home therapy. No fever or chills. No hemoptysis. No TB or industrial exposure. Oxygen saturation in the ER was in the 70s. PAST MEDICAL HISTORY 1. His past medical history is that of COPD, asthma component. 2. Diabetes mellitus. 3. Hypertension. 4. Morbid obesity. 5. Anxiety. 6. Hyperlipidemia. 7. Chronic kidney disease stage II. 8. Had previous hernia repair. 9. Cyst removed from back. 10. Left knee arthroscopy. 11. Squamous cell skin cancer, removed in the past. MEDICATIONS AT HOME 1. Symbicort b.i.d. 2. Ventolin p.r.n. 3. Duloxetine. 4. Levemir. 5. Cozaar. 6. Lyrica. 7. Lisinopril. ALLERGIES None known to medication. FAMILY HISTORY Noncontributory. SOCIAL HISTORY Remote smoking history, does not smoke at present. Does not use drugs. Drinks alcohol socially. REVIEW OF SYSTEMS Systems review, 12-point review of systems as per HPI and past history, otherwise, negative. PHYSICAL EXAMINATION GENERAL: On exam the patient is alert. VITAL SIGNS: Temperature 98 degrees Fahrenheit, pulse 99%, respiration 20, blood pressure 170/80. HEENT: Exam unremarkable. Eyes without icterus. NECK: Without adenopathy. Thyroid enlargement. Central trachea. CHEST: Scattered rhonchi bilaterally. CARDIAC: Cardiac exam PMI distant. S1-S2 audible. No murmur or rub. ABDOMEN: Lax, audible bowel sounds. EXTREMITIES: No clubbing, cyanosis or edema. SKIN: Normal. No lymphadenopathy. LABORATORY DATA White count 1000, hemoglobin 14, hematocrit 42, sodium 142, potassium 3.8, BUN 20, creatinine 1.3, INR 1.0. IMAGING STUDIES Chest x-ray no acute infiltrate identified, minimal atelectatic change at bases. IMPRESSION 1. COPD exacerbation. 2. Diabetes mellitus. 3. Hypertension. 4. Morbid obesity. 5. Chronic kidney disease. PLAN The patient is on oxygen therapy. Initial BiPap is now discontinued. Bronchodilator therapy, antibiotic therapy will be given. The patient is morbidly obese and sleep disorder breathing is obviously to be entertained. Will obtain further history about the patient sleep from when visiting. I do thank you for asking me to partake in Mr. Borrego's care. Shonna Kilpatrick MD [id number]/MIKAYLA /6:26 PM /6:40 PM
[2016-07-20] MEDS: ACETAMINOPHEN 325 MG TAB PO PRN (22:30)
[2016-07-21] VITALS (30 sets, daily range): BP systolic 104–131; BP diastolic 49–66; PULSE 68–96; RESP 16–22; TEMP 97.4–98.4; O2SAT 91–97
[2016-07-21] MEDS ORDERED: MORPHINE SULFATE 4 MG/ML INJ IV PUSH ONE (00:30)
[2016-07-21] MEDS: cefTRIAXone INJ 1,000 MG in SODIUM CHLORIDE 0.9% INJ 100 ML IV SCH (03:00)
[2016-07-21] MEDS: AZITHROMYCIN INJ 500 MG in SODIUM CHLOR 0.9% 250 ML INJ 250 ML IV SCH (04:00)
[2016-07-21] MEDS: RESP: ALBUTEROL 2.5 MG/IPRATROPIUM 0.5 MG NEB (SCH) INH ×4 (04:00→21:32)
[2016-07-21] MEDS: methylPREDNISolone SOD SUCC 125 MG/2 ML VIAL IVP SCH (06:32)
[2016-07-21] MEDS: ACETAMINOPHEN 325 MG TAB PO PRN (06:33)
[2016-07-21] MEDS: INSULIN ASPART SUPPLEMENTAL SCALE SQ SCH ×4 (06:37→20:33)
[2016-07-21 07:11] LABS: BICARBONATE 25.4 MEQ/L (21.0-32.0); MAGNESIUM 2.1 MG/DL (1.5-2.5); POTASSIUM 4.5 MEQ/L (3.5-5.1)
[2016-07-21] MEDS: MAGNESIUM OXIDE 400 MG TAB PO SCH (08:52)
[2016-07-21] MEDS: DOCUSATE SODIUM 100 MG CAP PO SCH ×2 (08:53→20:34)
[2016-07-21] MEDS: BUDESONIDE-FORMOTEROL 160/4.5 MCG INHALER INH SCH ×2 (08:53→20:33)
[2016-07-21] MEDS: PREGABALIN 100 MG CAP PO SCH ×3 (08:53→18:15)
[2016-07-21] MEDS: DULoxetine HCl DR 30 MG CAP PO SCH (08:53)
[2016-07-21] MEDS: PANTOPRAZOLE SODIUM 40 MG VIAL IV PUSH SCH (08:53)
[2016-07-21] MEDS: SODIUM CHLORIDE 0.9% FLUSH 5 ML FLUSH FLUSH SCH ×2 (08:55→20:35)
[2016-07-21] MEDS: HEPARIN SODIUM - SQ 10,000 UNITS/ML VIAL SQ SCH ×2 (08:56→20:34)
[2016-07-21] MEDS: INSULIN DETEMIR 100 UNITS/ML VIAL SQ SCH ×2 (08:56→20:34)
--- NOTE | 2016-07-21 09:06 | HHI.PR ---
Subjective Remarks looks and feels better today. sob has improved. has occasional cough. no fever. d/w the RN. Objective Vitals Vital Signs Date Time Temp Pulse Resp B/P Pulse Ox O2 Delivery O2 Flow Rate FiO2 07/21/16 03:00 97.4 75 18 111/65 96 07/21/16 01:43 97 35 07/20/16 23:00 97.7 76 14 131/65 98 07/20/16 20:41 96 Nasal Cannula 4.00 07/20/16 19:00 97.9 76 18 133/60 95 07/20/16 18:01 88 07/20/16 17:00 86 07/20/16 16:01 76 07/20/16 15:26 95 Nasal Cannula 2.00 07/20/16 15:15 98.3 77 24 159/75 98 07/20/16 15:00 74 07/20/16 14:00 80 07/20/16 13:01 92 07/20/16 12:00 107 07/20/16 11:01 98.4 103 22 156/71 91 07/20/16 11:00 100 07/20/16 10:00 92 I/O 07/20/16 07/20/16 07/20/16 07/21/16 07/21/16 07/21/16 07:00 15:00 23:00 07:00 15:00 23:00 Intake Total 720 ml Output Total 350 ml Balance 370 ml Intake Oral 720 ml Output Urine Total 350 ml # Voids 4 Result Diagram: 07/20/16 02207/21/16 0607 Imaging Last Impressions Chest X-Ray 07/20/166 Signed Impressions: Service Date/Time: Wednesday, July 20, 2016 02:33 - CONCLUSION: 1. Minimal basilar atelectasis. Exam otherwise unremarkable. Jag Sutherland MD Objective Remarks GENERAL: This is a well-nourished, well-developed patient, in no apparent distress. CARDIOVASCULAR: Regular rate and regular rhythm without murmurs, gallops, or rubs. RESPIRATORY: wheezing has much improved. GASTROINTESTINAL: Abdomen soft, non-tender, nondistended. Normal, active bowel sounds MUSCULOSKELETAL: Extremities without clubbing, cyanosis, or edema. NEURO: Alert & Oriented x4 to person, place, time, situation. Moves all ext x4 Procedures none Medications and IVs Current Medications IV Flush (NS Flush) 2 ml UNSCH PRN IVF FLUSH AFTER USING IV ACCESS; Start 07/20 at 02:30; Stop 07/20/16 at 05:00; Status DC Albuterol/ Ipratropium 1 ampule 1 ampule Q15M INH Last administered on 02:30; Start 07/20/16 at 02:30; Stop 07/20/16 at 03:01; Status DC Ceftriaxone Sodium 1000 mg/ Sodium Chloride 100 ml @ 200 mls/hr ONCE ONCE IV Last administered on 07/20/16 02:46; Start 07/20/16 at 02:30; Stop 07/20/16 at 02:59; Status DC Azithromycin/ Sodium Chloride (Zithromax Inj/ NS 250 ml Inj) 250 ml @ 250 mls/ hr ONCE ONCE IV Last administered on 07/20/16 03:09; Start 07/20/16 at 02:30 ; Stop 07/20/16 at 03:29; Status DC Lorazepam (Ativan Inj) 0.5 mg ONCE ONCE IV PUSH Last administered on 02:45; Start 07/20/16 at 02:30; Stop 07/20/16 at 02:31; Status DC Pregabalin 200 mg 200 mg ONCE ONCE PO Last administered on 07/20/16 02:45; Start 07/20/16 at 02:30; Stop 07/20/16 at 02:31; Status DC Sodium Chloride (NS 1000 ml Inj) 1,000 ml @ 1,000 mls/hr Q1H ONCE IV Last administered on 07/20/16 03:53; Start 07/20/16 at 03:45; Stop 07/20/16 at 04:46 ; Status DC Albuterol/ Ipratropium (Duoneb Neb) 1 ampule Q6HR NEB INH Last administered on 07/21/16 04:00; Start 07/20/16 at 04:30 Albuterol Sulfate (Albuterol Neb) 2.5 mg Q2HR NEB PRN INH SHORTNESS OF BREATH; Start 07/20/16 at 04:30 Methylprednisolone Sodium Succinate 60 mg 60 mg Q6H IVP Last administered on 10:27; Start 07/20/16 at 05:00; Stop 07/20/16 at 11:35; Status DC Ceftriaxone Sodium 1000 mg/ Sodium Chloride 100 ml @ 200 mls/hr Q24H IV Last administered on 07/21/16 03:00; Start 07/21/16 at 03:00 Azithromycin/ Sodium Chloride (Zithromax Inj/ NS 250 ml Inj) 250 ml @ 250 mls/ hr Q24H IV Last administered on 07/21/16 04:00; Start 07/21/16 at 04:00 Magnesium Oxide 400 mg 400 mg Q12HR PO Last administered on 07/20/16 22:30; Start 07/20/16 at 09:00 Magnesium Sulfate/ Dextrose (Magnesium Sulfate 1 Gm Premix) 100 ml @ 100 mls/ hr ONCE ONCE IV Last administered on 07/20/16 05:01; Start 07/20/16 at 05:00 ; Stop 07/20/16 at 05:59; Status DC Dextrose (D50w (Vial) Inj) 25 ml UNSCH PRN IV PUSH HYPOGLYCEMIA-SEE COMMENTS; Start 07/20/16 at 04:30; Stop 07/20/16 at 11:39; Status DC Glucagon (Glucagon Inj) 1 mg UNSCH PRN OTHER HYPOGLYCEMIA-SEE COMMENTS; Start 07/20/16 at 04:30; Stop 07/20/16 at 11:39; Status DC Insulin Aspart 1 1 ACHS SLIDING SCALE SQ Last administered on 07/20/16 11:00 ; Start 07/20/16 at 07:00; Stop 07/20/16 at 11:34; Status DC Sodium Chloride (NS 1000 ml Inj) 1,000 ml @ 100 mls/hr Q10H IV Last administered on 07/20/16 04:51; Start 07/20/16 at 04:28 IV Flush (NS Flush) 2 ml UNSCH PRN FLUSH FLUSH AFTER USING IV ACCESS; Start at 04:30 IV Flush (NS Flush) 2 ml BID FLUSH Last administered on 07/20/16 22:33; Start 07/20/16 at 09:00 Acetaminophen (Tylenol) 650 mg Q4H PRN PO TEMP > 100.4 Last administered on 07/21 06:33; Start 07/20/16 at 04:30 Ondansetron HCl (Zofran Inj) 4 mg Q6H PRN IVP NAUSEA OR VOMITING Last administered on 07/21/16 00:58; Start 07/20/16 at 04:30 Bisacodyl (Dulcolax Supp) 10 mg DAILY PRN [place] CONSTIPATION; Start 07/20/16 at 04 :30 Docusate Sodium (Colace) 100 mg Q12H PO Last administered on 07/20/16 10:27; Start 07/20/16 at 09:00 Sennosides (Senokot) 17.2 mg Q12H PRN PO CONSTIPATION; Start 07/20/16 at 04:30 Heparin Sodium (Porcine) (Heparin Inj) 5,000 units Q12H SQ Last administered on 07/20/16 22:31; Start 07/20/16 at 09:00 Acetaminophen (Tylenol) 650 mg Q6H PRN PO PAIN SCALE 1 TO 2; Start 07/20/16 at 04:30 Naloxone HCl 0.4 mg 0.4 mg UNSCH PRN IV SEE LABEL COMMENTS; Start 07/20/16 at 04:30 Sodium Chloride (NS 500 ml Inj) 500 ml @ 500 mls/hr BOLUS ONCE IV Last administered on 07/20/16 04:50; Start 07/20/16 at 04:45; Stop 07/20/16 at 05:44 ; Status DC Budesonide/ Formoterol Fumarate (Symbicort 160-4.5 Inh) 2 puff Q12HR INH Last administered on 07/20/16 22:32; Start 07/20/16 at 09:00 Duloxetine HCl (Cymbalta Dr) 30 mg DAILY PO Last administered on 07/20/16 10: 27; Start 07/20/16 at 09:00 Insulin Detemir (Levemir Inj) 30 units BID SQ Last administered on 07/20/16 22 :31; Start 07/20/16 at 09:00 Pregabalin (Lyrica) 200 mg TID PO Last administered on 07/20/16 18:52; Start 07/20/16 at 09:00 Hydralazine HCl (Apresoline Inj) 10 mg Q6H PRN IV SBP> OR = 180, DBP> OR = 100 ; Start 07/20/16 at 04:45 Clonidine (Catapres) 0.1 mg Q6H PRN PO SBP> OR = 180, DBP> OR = 100; Start at 04:45 Pantoprazole Sodium (Protonix Inj) 40 mg Q24H IV PUSH Last administered on 07/20 15:55; Start 07/20/16 at 09:00 Dextrose (D50w (Vial) Inj) 25 ml UNSCH PRN IV PUSH HYPOGLYCEMIA-SEE COMMENTS; Start 07/20/16 at 11:45 Glucagon (Glucagon Inj) 1 mg UNSCH PRN OTHER HYPOGLYCEMIA-SEE COMMENTS; Start 07/20/16 at 11:45 Insulin Aspart (NovoLOG SUPPLEMENTAL SCALE) 1 ACHS SLIDING SCALE SQ Last administered on 07/21/16 06:37; Start 07/20/16 at 16:00 Methylprednisolone Sodium Succinate (SoluMEDROL INJ) 60 mg Q8HR IVP Last administered on 07/21/16 06:32; Start 07/20/16 at 14:00 Morphine Sulfate (Morphine Inj) 2 mg ONCE ONCE IV PUSH Last administered on 00:46; Start 07/21/16 at 00:30; Stop 07/21/16 at 00:33; Status DC A/P Assessment and Plan A/P Acute respiratory failure/COPD exacerbation Images: Chest xray shows Minimal basilar atelectasis -Consulted special needs babysitter -taper down Solumedrol IV -Azithromycin and Rocephin IV -Duonebs ordered -Flu screen pending -walk test before discharge. Lactic Acidosis, likely due to hypoxia Labs: Lactic 4.6, down to 2.3 -NS bolus given in ED -Antibiotics as above Hypomagnesium-resolved HTN, chronic -Monitor vitals -apresoline, and clonidine prn -Hold home medications for now DM, chronic -Accu checks AC/HS with SSI -Restarted home Levemir CKD, chronic stage III Labs: Creatine 1.3, baseline 2.0 -Home BP meds -Trend creatine -Avoid nephrotoxic drugs Neuropathy, chronic: reordered home medications Lyrica Anxiety, chronic: reordered home medications Cymbalta DVT prophylaxis: Heparin GI prophylaxis: Protonix Discharge Planning dc home within the next one-two days if stable. Shannan Taveras MD Jul 21, 2016 09:06
[2016-07-21] MEDS: PANTOPRAZOLE SOD 40 MG DELAYED RELEASE TAB PO SCH (10:00)
[2016-07-21] MEDS: oxyCODONE/ACETAMINOPHEN 5 MG/325 MG TAB PO PRN ×2 (10:59→18:16)
[2016-07-21] MEDS: methylPREDNISolone SOD SUCC 40 MG/1 ML VIAL IVP SCH ×2 (15:30→20:35)
--- NOTE | 2016-07-21 17:12 | HHI.PR ---
Subjective Remarks less sob on O2 Objective GENERAL: SKIN: Warm and dry. HEAD: Atraumatic. Normocephalic. EYES: Pupils equal and round. No scleral icterus. No injection or drainage. ENT: No nasal bleeding or discharge. Mucous membranes pink and moist. NECK: Trachea midline. No JVD. CARDIOVASCULAR: Regular rate and rhythm. RESPIRATORY: No accessory muscle use. Clear to auscultation. Breath sounds equal bilaterally. GASTROINTESTINAL: Abdomen soft, non-tender, nondistended. Hepatic and splenic margins not palpable. MUSCULOSKELETAL: Extremities without clubbing, cyanosis, or edema. No obvious deformities. NEUROLOGICAL: Awake and alert. No obvious cranial nerve deficits. Motor grossly within normal limits. Five out of 5 muscle strength in the arms and legs. Normal speech. PSYCHIATRIC: Appropriate mood and affect; insight and judgment normal. Vital Signs Date Time Temp Pulse Resp B/P Pulse Ox O2 Delivery O2 Flow Rate FiO2 07/21/16 16:01 74 07/21/16 15:30 97.8 78 22 113/54 94 07/21/16 15:16 94 Nasal Cannula 3.00 07/21/16 15:00 81 07/21/16 14:00 96 07/21/16 13:00 90 07/21/16 12:01 84 07/21/16 12:01 18 07/21/16 11:15 97.6 87 20 104/49 92 07/21/16 11:00 88 07/21/16 10:01 96 07/21/16 09:25 96 Nasal Cannula 3.00 07/21/16 09:00 82 07/21/16 08:45 97.7 84 20 113/66 92 07/21/16 08:00 72 07/21/16 07:00 72 07/21/16 06:00 70 07/21/16 05:00 72 07/21/16 04:00 70 07/21/16 03:00 97.4 75 18 111/65 96 07/21/16 03:00 70 07/21/16 02:00 72 07/21/16 01:43 97 35 07/21/16 01:00 72 07/21/16 00:00 78 07/20/16 23:00 97.7 76 14 131/65 98 07/20/16 23:00 91 07/20/16 22:00 76 07/20/16 21:00 78 07/20/16 20:41 96 Nasal Cannula 4.00 07/20/16 20:00 88 07/20/16 19:00 91 07/20/16 19:00 97.9 76 18 133/60 95 07/20/16 18:01 88 I/O 07/20/16 07/20/16 07/20/16 07/21/16 07/21/16 07/21/16 07:00 15:00 23:00 07:00 15:00 23:00 Intake Total 720 ml 810 ml Output Total 350 ml 150 ml Balance 370 ml 660 ml Intake Oral 720 ml 660 ml IV Total 150 ml Output Urine Total 350 ml 150 ml # Voids 4 # Bowel Movements 1 Result Diagram: 07/20/16 0220 07/21/16 0607 Objective Remarks Last Impressions Chest X-Ray 07/20/16215 Signed Impressions: Service Date/Time: Wednesday, July 20, 2016 02:33 - CONCLUSION: 1. Minimal basilar atelectasis. Exam otherwise unremarkable. Jag Sutherland MD Assessment and Plan Assessment and Plan COPD EXACERBATION , IMPROVING RESPIRATORY FAILURE ON Discussed Condition With GENERAL: SKIN: Warm and dry. HEAD: Atraumatic. Normocephalic. EYES: Pupils equal and round. No scleral icterus. No injection or drainage. ENT: No nasal bleeding or discharge. Mucous membranes pink and moist. NECK: Trachea midline. No JVD. CARDIOVASCULAR: Regular rate and rhythm. RESPIRATORY: No accessory muscle use. Clear to auscultation. Breath sounds equal bilaterally. GASTROINTESTINAL: Abdomen soft, non-tender, nondistended. Hepatic and splenic margins not palpable. MUSCULOSKELETAL: Extremities without clubbing, cyanosis, or edema. No obvious deformities. NEUROLOGICAL: Awake and alert. No obvious cranial nerve deficits. Motor grossly within normal limits. Five out of 5 muscle strength in the arms and legs. Normal speech. PSYCHIATRIC: Appropriate mood and affect; insight and judgment normal. Discharge Planning Last Impressions Chest X-Ray 07/20/16215 Signed Impressions: Service Date/Time: Wednesday, July 20, 2016 02:33 - CONCLUSION: 1. Minimal basilar atelectasis. Exam otherwise unremarkable. MD Shonna Fall Wahba Wadie MD Jul 21, 2016 17:12
[2016-07-22] VITALS (26 sets, daily range): BP systolic 124–156; BP diastolic 57–81; PULSE 75–100; RESP 18–20; TEMP 97.4–98.4; O2SAT 93–97
[2016-07-22] MEDS: oxyCODONE/ACETAMINOPHEN 5 MG/325 MG TAB PO PRN ×4 (00:26→19:16)
[2016-07-22] MEDS: RESP: ALBUTEROL 2.5 MG/IPRATROPIUM 0.5 MG NEB (SCH) INH ×4 (03:02→20:11)
[2016-07-22] MEDS: cefTRIAXone INJ 1,000 MG in SODIUM CHLORIDE 0.9% INJ 100 ML IV SCH (03:13)
[2016-07-22] MEDS: AZITHROMYCIN INJ 500 MG in SODIUM CHLOR 0.9% 250 ML INJ 250 ML IV SCH (04:28)
[2016-07-22] MEDS: methylPREDNISolone SOD SUCC 40 MG/1 ML VIAL IVP SCH ×3 (06:16→22:12)
[2016-07-22] MEDS: INSULIN ASPART SUPPLEMENTAL SCALE SQ SCH ×4 (06:19→22:15)
[2016-07-22] MEDS: SODIUM CHLOR 0.9% 1000 ML INJ 1,000 ML IV SCH ×2 (06:28→15:58)
--- NOTE | 2016-07-22 08:13 | HHI.PR ---
Subjective Remarks in no acute distress. sob is improving. no other complaints. Objective Vitals Vital Signs Date Time Temp Pulse Resp B/P Pulse Ox O2 Delivery O2 Flow Rate FiO2 07/22/16 07:00 97.7 86 20 128/57 94 07/22/16 07:00 87 07/22/16 06:00 78 07/22/16 05:00 78 07/22/16 04:00 75 07/22/16 03:00 79 07/22/16 03:00 98.2 80 18 124/65 96 07/22/16 02:00 83 07/22/16 01:00 86 07/22/16 00:00 84 07/21/16 23:00 82 07/21/16 23:00 98.0 84 16 131/64 91 07/21/16 22:00 84 07/21/16 21:00 82 07/21/16 20:00 68 07/21/16 19:00 98.4 81 18 115/64 92 07/21/16 19:00 70 07/21/16 18:01 70 07/21/16 17:00 80 07/21/16 16:01 74 07/21/16 15:30 97.8 78 22 113/54 94 07/21/16 15:16 94 Nasal Cannula 3.00 07/21/16 15:00 81 07/21/16 14:00 96 07/21/16 13:00 90 07/21/16 12:01 84 07/21/16 12:01 18 07/21/16 11:15 97.6 87 20 104/49 92 07/21/16 11:00 88 07/21/16 10:01 96 07/21/16 09:25 96 Nasal Cannula 3.00 07/21/16 09:00 82 07/21/16 08:45 97.7 84 20 113/66 92 I/O 07/21/16 07/21/16 07/21/16 07/22/16 07/22/16 07/22/16 07:00 15:00 23:00 07:00 15:00 23:00 Intake Total 810 ml 1326 ml 1132 ml Output Total 150 ml Balance 660 ml 1326 ml 1132 ml Intake Oral 660 ml 1326 ml 682 ml IV Total 150 ml 450 ml Output Urine Total 150 ml # Voids 1 3 # Bowel Movements 1 1 1 Result Diagram: 07/20/16 0220 07/21/16 0607 Imaging Last Impressions Chest X-Ray 07/20/166 Signed Impressions: Service Date/Time: Wednesday, July 20, 2016 02:33 - CONCLUSION: 1. Minimal basilar atelectasis. Exam otherwise unremarkable. Jag Sutherland MD Objective Remarks GENERAL: This is a well-nourished, well-developed patient, in no apparent distress. CARDIOVASCULAR: Regular rate and regular rhythm without murmurs, gallops, or rubs. RESPIRATORY: wheezing has much improved. GASTROINTESTINAL: Abdomen soft, non-tender, nondistended. Normal, active bowel sounds MUSCULOSKELETAL: Extremities without clubbing, cyanosis, or edema. NEURO: Alert & Oriented x4 to person, place, time, situation. Moves all ext x4 Procedures none Medications and IVs Current Medications IV Flush (NS Flush) 2 ml UNSCH PRN IVF FLUSH AFTER USING IV ACCESS; Start 07/20 at 02:30; Stop 07/20/16 at 05:00; Status DC Albuterol/ Ipratropium 1 ampule 1 ampule Q15M INH Last administered on 02:30; Start 07/20/16 at 02:30; Stop 07/20/16 at 03:01; Status DC Ceftriaxone Sodium 1000 mg/ Sodium Chloride 100 ml @ 200 mls/hr ONCE ONCE IV Last administered on 07/20/16 02:46; Start 07/20/16 at 02:30; Stop 07/20/16 at 02:59; Status DC Azithromycin/ Sodium Chloride (Zithromax Inj/ NS 250 ml Inj) 250 ml @ 250 mls/ hr ONCE ONCE IV Last administered on 07/20/16 03:09; Start 07/20/16 at 02:30 ; Stop 07/20/16 at 03:29; Status DC Lorazepam (Ativan Inj) 0.5 mg ONCE ONCE IV PUSH Last administered on 02:45; Start 07/20/16 at 02:30; Stop 07/20/16 at 02:31; Status DC Pregabalin 200 mg 200 mg ONCE ONCE PO Last administered on 07/20/16 02:45; Start 07/20/16 at 02:30; Stop 07/20/16 at 02:31; Status DC Sodium Chloride (NS 1000 ml Inj) 1,000 ml @ 1,000 mls/hr Q1H ONCE IV Last administered on 07/20/16 03:53; Start 07/20/16 at 03:45; Stop 07/20/16 at 04:46 ; Status DC Albuterol/ Ipratropium (Duoneb Neb) 1 ampule Q6HR NEB INH Last administered on 07/21/16 21:32; Start 07/20/16 at 04:30 Albuterol Sulfate (Albuterol Neb) 2.5 mg Q2HR NEB PRN INH SHORTNESS OF BREATH; Start 07/20/16 at 04:30 Methylprednisolone Sodium Succinate 60 mg 60 mg Q6H IVP Last administered on 10:27; Start 07/20/16 at 05:00; Stop 07/20/16 at 11:35; Status DC Ceftriaxone Sodium 1000 mg/ Sodium Chloride 100 ml @ 200 mls/hr Q24H IV Last administered on 07/22/16 03:13; Start 07/21/16 at 03:00 Azithromycin/ Sodium Chloride (Zithromax Inj/ NS 250 ml Inj) 250 ml @ 250 mls/ hr Q24H IV Last administered on 07/22/16 04:28; Start 07/21/16 at 04:00 Magnesium Oxide 400 mg 400 mg Q12HR PO Last administered on 07/21/16 08:52; Start 07/20/16 at 09:00; Stop 07/21/16 at 09:09; Status DC Magnesium Sulfate/ Dextrose (Magnesium Sulfate 1 Gm Premix) 100 ml @ 100 mls/ hr ONCE ONCE IV Last administered on 07/20/16 05:01; Start 07/20/16 at 05:00 ; Stop 07/20/16 at 05:59; Status DC Dextrose (D50w (Vial) Inj) 25 ml UNSCH PRN IV PUSH HYPOGLYCEMIA-SEE COMMENTS; Start 07/20/16 at 04:30; Stop 07/20/16 at 11:39; Status DC Glucagon (Glucagon Inj) 1 mg UNSCH PRN OTHER HYPOGLYCEMIA-SEE COMMENTS; Start 07/20/16 at 04:30; Stop 07/20/16 at 11:39; Status DC Insulin Aspart 1 1 ACHS SLIDING SCALE SQ Last administered on 07/20/16 11:00 ; Start 07/20/16 at 07:00; Stop 07/20/16 at 11:34; Status DC Sodium Chloride (NS 1000 ml Inj) 1,000 ml @ 100 mls/hr Q10H IV Last administered on 07/20/16 04:51; Start 07/20/16 at 04:28 IV Flush (NS Flush) 2 ml UNSCH PRN FLUSH FLUSH AFTER USING IV ACCESS; Start at 04:30 IV Flush (NS Flush) 2 ml BID FLUSH Last administered on 07/21/16 20:35; Start 07/20/16 at 09:00 Acetaminophen (Tylenol) 650 mg Q4H PRN PO TEMP > 100.4 Last administered on 07/21 06:33; Start 07/20/16 at 04:30 Ondansetron HCl (Zofran Inj) 4 mg Q6H PRN IVP NAUSEA OR VOMITING Last administered on 07/21/16 00:58; Start 07/20/16 at 04:30 Bisacodyl (Dulcolax Supp) 10 mg DAILY PRN [place] CONSTIPATION; Start 07/20/16 at 04 :30 Docusate Sodium (Colace) 100 mg Q12H PO Last administered on 07/21/16 08:53; Start 07/20/16 at 09:00 Sennosides (Senokot) 17.2 mg Q12H PRN PO CONSTIPATION; Start 07/20/16 at 04:30 Heparin Sodium (Porcine) (Heparin Inj) 5,000 units Q12H SQ Last administered on 07/21/16 20:34; Start 07/20/16 at 09:00 Acetaminophen (Tylenol) 650 mg Q6H PRN PO PAIN SCALE 1 TO 2; Start 07/20/16 at 04:30 Naloxone HCl 0.4 mg 0.4 mg UNSCH PRN IV SEE LABEL COMMENTS; Start 07/20/16 at 04:30 Sodium Chloride (NS 500 ml Inj) 500 ml @ 500 mls/hr BOLUS ONCE IV Last administered on 07/20/16 04:50; Start 07/20/16 at 04:45; Stop 07/20/16 at 05:44 ; Status DC Budesonide/ Formoterol Fumarate (Symbicort 160-4.5 Inh) 2 puff Q12HR INH Last administered on 07/21/16 20:33; Start 07/20/16 at 09:00 Duloxetine HCl (Cymbalta Dr) 30 mg DAILY PO Last administered on 07/21/16 08:53 ; Start 07/20/16 at 09:00 Insulin Detemir (Levemir Inj) 30 units BID SQ Last administered on 07/21/16 20: 34; Start 07/20/16 at 09:00 Pregabalin (Lyrica) 200 mg TID PO Last administered on 07/21/16 18:15; Start at 09:00 Hydralazine HCl (Apresoline Inj) 10 mg Q6H PRN IV SBP> OR = 180, DBP> OR = 100 ; Start 07/20/16 at 04:45 Clonidine (Catapres) 0.1 mg Q6H PRN PO SBP> OR = 180, DBP> OR = 100; Start at 04:45 Pantoprazole Sodium (Protonix Inj) 40 mg Q24H IV PUSH Last administered on 08:53; Start 07/20/16 at 09:00; Stop 07/21/16 at 09:09; Status DC Dextrose (D50w (Vial) Inj) 25 ml UNSCH PRN IV PUSH HYPOGLYCEMIA-SEE COMMENTS; Start 07/20/16 at 11:45 Glucagon (Glucagon Inj) 1 mg UNSCH PRN OTHER HYPOGLYCEMIA-SEE COMMENTS; Start 07/20/16 at 11:45 Insulin Aspart (NovoLOG SUPPLEMENTAL SCALE) 1 ACHS SLIDING SCALE SQ Last administered on 07/22/16 06:19; Start 07/20/16 at 16:00 Methylprednisolone Sodium Succinate (SoluMEDROL INJ) 60 mg Q8HR IVP Last administered on 07/21/16 06:32; Start 07/20/16 at 14:00; Stop 07/21/16 at 09:09; Status DC Morphine Sulfate (Morphine Inj) 2 mg ONCE ONCE IV PUSH Last administered on 00:46; Start 07/21/16 at 00:30; Stop 07/21/16 at 00:33; Status DC Methylprednisolone Sodium Succinate (SoluMEDROL INJ) 40 mg Q8HR IVP Last administered on 07/22/16 06:16; Start 07/21/16 at 14:00 Oxycodone/ Acetaminophen (Percocet 5-325 Mg) 1 tab Q6H PRN PO PAIN > 3 Last administered on 07/22/16 06:22; Start 07/21/16 at 09:15 Pantoprazole Sodium (Protonix) 40 mg DAILY PO Last administered on 07/21/16 10: 00; Start 07/21/16 at 10:00 A/P Assessment and Plan A/P Acute respiratory failure/COPD exacerbation - improving. Chest xray shows Minimal basilar atelectasis -Consulted manager primary -continue to taper down Solumedrol IV -continue Azithromycin and Rocephin IV -Duonebs ordered -Flu screen pending -walk test before today. Lactic Acidosis, likely due to hypoxia Labs: Lactic 4.6, down to 2.3 -NS bolus given in ED -Antibiotics as above Hypomagnesium-resolved HTN, chronic -Monitor vitals -apresoline, and clonidine prn -Hold home medications for now DM, chronic -Accu checks AC/HS with SSI -Restarted home Levemir CKD, chronic stage III Labs: Creatine 1.3, baseline 2.0 -Home BP meds -Trend creatine -Avoid nephrotoxic drugs Neuropathy, chronic: reordered home medications Lyrica Anxiety, chronic: reordered home medications Cymbalta DVT prophylaxis: Heparin GI prophylaxis: Protonix Discharge Planning dc home tomorrow if stable- walk test ordered. Shannan Taveras MD Jul 22, 2016 08:13
[2016-07-22] MEDS: DOCUSATE SODIUM 100 MG CAP PO SCH ×2 (09:00→21:00)
[2016-07-22] MEDS: HEPARIN SODIUM - SQ 10,000 UNITS/ML VIAL SQ SCH ×2 (09:21→22:11)
[2016-07-22] MEDS: INSULIN DETEMIR 100 UNITS/ML VIAL SQ SCH ×2 (09:21→22:11)
[2016-07-22] MEDS: DULoxetine HCl DR 30 MG CAP PO SCH (09:21)
[2016-07-22] MEDS: PANTOPRAZOLE SOD 40 MG DELAYED RELEASE TAB PO SCH (09:22)
[2016-07-22] MEDS: PREGABALIN 100 MG CAP PO SCH ×3 (09:22→17:52)
[2016-07-22] MEDS: BUDESONIDE-FORMOTEROL 160/4.5 MCG INHALER INH SCH ×2 (09:23→21:00)
[2016-07-22] MEDS: SODIUM CHLORIDE 0.9% FLUSH 5 ML FLUSH FLUSH SCH ×2 (09:23→22:12)
--- NOTE | 2016-07-22 17:06 | HHI.PR ---
Subjective Remarks less sob on O2 Objective Vital Signs Date Time Temp Pulse Resp B/P Pulse Ox O2 Delivery O2 Flow Rate FiO2 07/22/16 17:00 85 07/22/16 16:00 86 07/22/16 15:00 84 07/22/16 15:00 98.0 88 20 156/81 97 07/22/16 14:00 90 07/22/16 13:00 94 07/22/16 12:00 91 07/22/16 11:00 97.6 92 20 129/65 97 07/22/16 11:00 87 07/22/16 10:00 96 07/22/16 09:21 93 21 07/22/16 09:00 86 07/22/16 08:00 88 07/22/16 07:00 97.7 86 20 128/57 94 07/22/16 07:00 87 07/22/16 06:00 78 07/22/16 05:00 78 07/22/16 04:00 75 07/22/16 03:00 79 07/22/16 03:00 98.2 80 18 124/65 96 07/22/16 02:00 83 07/22/16 01:00 86 07/22/16 00:00 84 07/21/16 23:00 82 07/21/16 23:00 98.0 84 16 131/64 91 07/21/16 22:00 84 07/21/16 21:00 82 07/21/16 20:00 68 07/21/16 19:00 98.4 81 18 115/64 92 07/21/16 19:00 70 07/21/16 18:01 70 I/O 07/21/16 07/21/16 07/21/16 07/22/16 07/22/16 07/22/16 07:00 15:00 23:00 07:00 15:00 23:00 Intake Total 810 ml 1326 ml 1132 ml 1920 ml Output Total 150 ml Balance 660 ml 1326 ml 1132 ml 1920 ml Intake Oral 660 ml 1326 ml 682 ml 1920 ml IV Total 150 ml 450 ml Output Urine Total 150 ml # Voids 1 3 5 # Bowel Movements 1 1 1 1 Result Diagram: 07/20/16 0220 07/21/16 0607 Objective Remarks GENERAL: SKIN: Warm and dry. HEAD: Atraumatic. Normocephalic. EYES: Pupils equal and round. No scleral icterus. No injection or drainage. ENT: No nasal bleeding or discharge. Mucous membranes pink and moist. NECK: Trachea midline. No JVD. CARDIOVASCULAR: Regular rate and rhythm. RESPIRATORY: No accessory muscle use. Clear to auscultation. Breath sounds equal bilaterally. GASTROINTESTINAL: Abdomen soft, non-tender, nondistended. Hepatic and splenic margins not palpable. MUSCULOSKELETAL: Extremities without clubbing, cyanosis, or edema. No obvious deformities. NEUROLOGICAL: Awake and alert. No obvious cranial nerve deficits. Motor grossly within normal limits. Five out of 5 muscle strength in the arms and legs. Normal speech. PSYCHIATRIC: Appropriate mood and affect; insight and judgment normal. Last Impressions Chest X-Ray 07/20/16 0216 Signed Impressions: Service Date/Time: Wednesday, July 20, 2016 02:33 - CONCLUSION: 1. Minimal basilar atelectasis. Exam otherwise unremarkable. Jag Sutherland MD Assessment and Plan Assessment and Plan COPD EXACERBATION , IMPROVING RESPIRATORY FAILURE ON Shonna Kilpatrick MD Jul 22, 2016 17:06
[2016-07-23] VITALS (14 sets, daily range): BP systolic 130–144; BP diastolic 68–76; PULSE 84–106; RESP 18–20; TEMP 97.9–98.3; O2SAT 93–96
[2016-07-23] MEDS: oxyCODONE/ACETAMINOPHEN 5 MG/325 MG TAB PO PRN ×2 (02:03→08:48)
[2016-07-23] MEDS: SODIUM CHLOR 0.9% 1000 ML INJ 1,000 ML IV SCH (02:28)
[2016-07-23] MEDS: cefTRIAXone INJ 1,000 MG in SODIUM CHLORIDE 0.9% INJ 100 ML IV SCH (03:00)
[2016-07-23] MEDS: AZITHROMYCIN INJ 500 MG in SODIUM CHLOR 0.9% 250 ML INJ 250 ML IV SCH (04:00)
[2016-07-23] MEDS: RESP: ALBUTEROL 2.5 MG/IPRATROPIUM 0.5 MG NEB (SCH) INH ×2 (04:16→09:22)
[2016-07-23] MEDS: INSULIN ASPART SUPPLEMENTAL SCALE SQ SCH (06:38)
[2016-07-23] MEDS: DOCUSATE SODIUM 100 MG CAP PO SCH (08:47)
[2016-07-23] MEDS: DULoxetine HCl DR 30 MG CAP PO SCH (08:48)
[2016-07-23] MEDS: PANTOPRAZOLE SOD 40 MG DELAYED RELEASE TAB PO SCH (08:48)
[2016-07-23] MEDS: methylPREDNISolone SOD SUCC 40 MG/1 ML VIAL IVP SCH (08:53)
[2016-07-23] MEDS: HEPARIN SODIUM - SQ 10,000 UNITS/ML VIAL SQ SCH (08:53)
[2016-07-23] MEDS: INSULIN DETEMIR 100 UNITS/ML VIAL SQ SCH (08:54)
[2016-07-23] MEDS: BUDESONIDE-FORMOTEROL 160/4.5 MCG INHALER INH SCH (08:54)
[2016-07-23] MEDS: PREGABALIN 100 MG CAP PO SCH (09:00)
[2016-07-23] MEDS: SODIUM CHLORIDE 0.9% FLUSH 5 ML FLUSH FLUSH SCH (09:00)
--- NOTE | 2016-07-23 09:01 | HHI.PR ---
Subjective Remarks resting comfortably with no distress. sob has much improved. no new complaints and wants to go home today. d/w the RN. Objective Vitals Vital Signs Date Time Temp Pulse Resp B/P Pulse Ox O2 Delivery O2 Flow Rate FiO2 07/22/16 20:11 97 07/22/16 19:00 97.4 90 18 140/69 94 07/22/16 18:00 94 07/22/16 17:00 85 07/22/16 16:00 86 07/22/16 15:00 84 07/22/16 15:00 98.0 88 20 156/81 97 07/22/16 14:00 90 07/22/16 13:00 94 07/22/16 12:00 91 07/22/16 11:00 97.6 92 20 129/65 97 07/22/16 11:00 87 07/22/16 10:00 96 07/22/16 09:21 93 21 07/22/16 09:00 86 I/O 07/22/16 07/22/16 07/22/16 07/23/16 07/23/16 07/23/16 07:00 15:00 23:00 07:00 15:00 23:00 Intake Total 1132 ml 1920 ml Balance 1132 ml 1920 ml Intake Oral 682 ml 1920 ml IV Total 450 ml # Voids 3 5 # Bowel Movements 1 1 Result Diagram: 07/20/16 0220 07/21/16 0607 Imaging Last Impressions Chest X-Ray 07/20/16 0216 Signed Impressions: Service Date/Time: Wednesday, July 20, 2016 02:33 - CONCLUSION: 1. Minimal basilar atelectasis. Exam otherwise unremarkable. Jag Sutherland MD Objective Remarks GENERAL: This is a well-nourished, well-developed patient, in no apparent distress. CARDIOVASCULAR: Regular rate and regular rhythm without murmurs, gallops, or rubs. RESPIRATORY: wheezing has much improved. GASTROINTESTINAL: Abdomen soft, non-tender, nondistended. Normal, active bowel sounds MUSCULOSKELETAL: Extremities without clubbing, cyanosis, or edema. NEURO: Alert & Oriented x4 to person, place, time, situation. Moves all ext x4 Procedures none Medications and IVs Current Medications IV Flush (NS Flush) 2 ml UNSCH PRN IVF FLUSH AFTER USING IV ACCESS; Start 07/20 at 02:30; Stop 07/20/16 at 05:00; Status DC Albuterol/ Ipratropium 1 ampule 1 ampule Q15M INH Last administered on 02:30; Start 07/20/16 at 02:30; Stop 07/20/16 at 03:01; Status DC Ceftriaxone Sodium 1000 mg/ Sodium Chloride 100 ml @ 200 mls/hr ONCE ONCE IV Last administered on 07/20/16 02:46; Start 07/20/16 at 02:30; Stop 07/20/16 at 02:59; Status DC Azithromycin/ Sodium Chloride (Zithromax Inj/ NS 250 ml Inj) 250 ml @ 250 mls/ hr ONCE ONCE IV Last administered on 07/20/16 03:09; Start 07/20/16 at 02:30 ; Stop 07/20/16 at 03:29; Status DC Lorazepam (Ativan Inj) 0.5 mg ONCE ONCE IV PUSH Last administered on 02:45; Start 07/20/16 at 02:30; Stop 07/20/16 at 02:31; Status DC Pregabalin 200 mg 200 mg ONCE ONCE PO Last administered on 07/20/16 02:45; Start 07/20/16 at 02:30; Stop 07/20/16 at 02:31; Status DC Sodium Chloride (NS 1000 ml Inj) 1,000 ml @ 1,000 mls/hr Q1H ONCE IV Last administered on 07/20/16 03:53; Start 07/20/16 at 03:45; Stop 07/20/16 at 04:46 ; Status DC Albuterol/ Ipratropium (Duoneb Neb) 1 ampule Q6HR NEB INH Last administered on 07/23/16 04:16; Start 07/20/16 at 04:30 Albuterol Sulfate (Albuterol Neb) 2.5 mg Q2HR NEB PRN INH SHORTNESS OF BREATH; Start 07/20/16 at 04:30 Methylprednisolone Sodium Succinate 60 mg 60 mg Q6H IVP Last administered on 10:27; Start 07/20/16 at 05:00; Stop 07/20/16 at 11:35; Status DC Ceftriaxone Sodium 1000 mg/ Sodium Chloride 100 ml @ 200 mls/hr Q24H IV Last administered on 07/23/16 03:00; Start 07/21/16 at 03:00 Azithromycin/ Sodium Chloride (Zithromax Inj/ NS 250 ml Inj) 250 ml @ 250 mls/ hr Q24H IV Last administered on 07/23/16 04:00; Start 07/21/16 at 04:00 Magnesium Oxide 400 mg 400 mg Q12HR PO Last administered on 07/21/16 08:52; Start 07/20/16 at 09:00; Stop 07/21/16 at 09:09; Status DC Magnesium Sulfate/ Dextrose (Magnesium Sulfate 1 Gm Premix) 100 ml @ 100 mls/ hr ONCE ONCE IV Last administered on 07/20/16 05:01; Start 07/20/16 at 05:00 ; Stop 07/20/16 at 05:59; Status DC Dextrose (D50w (Vial) Inj) 25 ml UNSCH PRN IV PUSH HYPOGLYCEMIA-SEE COMMENTS; Start 07/20/16 at 04:30; Stop 07/20/16 at 11:39; Status DC Glucagon (Glucagon Inj) 1 mg UNSCH PRN OTHER HYPOGLYCEMIA-SEE COMMENTS; Start 07/20/16 at 04:30; Stop 07/20/16 at 11:39; Status DC Insulin Aspart 1 1 ACHS SLIDING SCALE SQ Last administered on 07/20/16 11:00 ; Start 07/20/16 at 07:00; Stop 07/20/16 at 11:34; Status DC Sodium Chloride (NS 1000 ml Inj) 1,000 ml @ 100 mls/hr Q10H IV Last administered on 07/20/16 04:51; Start 07/20/16 at 04:28 IV Flush (NS Flush) 2 ml UNSCH PRN FLUSH FLUSH AFTER USING IV ACCESS; Start at 04:30 IV Flush (NS Flush) 2 ml BID FLUSH Last administered on 07/22/16 22:12; Start 07/20/16 at 09:00 Acetaminophen (Tylenol) 650 mg Q4H PRN PO TEMP > 100.4 Last administered on 07/21 06:33; Start 07/20/16 at 04:30 Ondansetron HCl (Zofran Inj) 4 mg Q6H PRN IVP NAUSEA OR VOMITING Last administered on 07/21/16 00:58; Start 07/20/16 at 04:30 Bisacodyl (Dulcolax Supp) 10 mg DAILY PRN NM CONSTIPATION; Start 07/20/16 at 04 :30 Docusate Sodium (Colace) 100 mg Q12H PO Last administered on 07/21/16 08:53; Start 07/20/16 at 09:00 Sennosides (Senokot) 17.2 mg Q12H PRN PO CONSTIPATION; Start 07/20/16 at 04:30 Heparin Sodium (Porcine) (Heparin Inj) 5,000 units Q12H SQ Last administered on 07/22/16 22:11; Start 07/20/16 at 09:00 Acetaminophen (Tylenol) 650 mg Q6H PRN PO PAIN SCALE 1 TO 2; Start 07/20/16 at 04:30 Naloxone HCl 0.4 mg 0.4 mg UNSCH PRN IV SEE LABEL COMMENTS; Start 07/20/16 at 04:30 Sodium Chloride (NS 500 ml Inj) 500 ml @ 500 mls/hr BOLUS ONCE IV Last administered on 07/20/16 04:50; Start 07/20/16 at 04:45; Stop 07/20/16 at 05:44 ; Status DC Budesonide/ Formoterol Fumarate (Symbicort 160-4.5 Inh) 2 puff Q12HR INH Last administered on 07/22/16 21:00; Start 07/20/16 at 09:00 Duloxetine HCl (Cymbalta Dr) 30 mg DAILY PO Last administered on 07/22/16 09:21 ; Start 07/20/16 at 09:00 Insulin Detemir (Levemir Inj) 30 units BID SQ Last administered on 07/22/16 22: 11; Start 07/20/16 at 09:00 Pregabalin (Lyrica) 200 mg TID PO Last administered on 07/22/16 17:52; Start at 09:00 Hydralazine HCl (Apresoline Inj) 10 mg Q6H PRN IV SBP> OR = 180, DBP> OR = 100 ; Start 07/20/16 at 04:45 Clonidine (Catapres) 0.1 mg Q6H PRN PO SBP> OR = 180, DBP> OR = 100; Start at 04:45 Pantoprazole Sodium (Protonix Inj) 40 mg Q24H IV PUSH Last administered on 08:53; Start 07/20/16 at 09:00; Stop 07/21/16 at 09:09; Status DC Dextrose (D50w (Vial) Inj) 25 ml UNSCH PRN IV PUSH HYPOGLYCEMIA-SEE COMMENTS; Start 07/20/16 at 11:45 Glucagon (Glucagon Inj) 1 mg UNSCH PRN OTHER HYPOGLYCEMIA-SEE COMMENTS; Start 07/20/16 at 11:45 Insulin Aspart (NovoLOG SUPPLEMENTAL SCALE) 1 ACHS SLIDING SCALE SQ Last administered on 07/23/16 06:38; Start 07/20/16 at 16:00 Methylprednisolone Sodium Succinate (SoluMEDROL INJ) 60 mg Q8HR IVP Last administered on 07/21/16 06:32; Start 07/20/16 at 14:00; Stop 07/21/16 at 09:09; Status DC Morphine Sulfate (Morphine Inj) 2 mg ONCE ONCE IV PUSH Last administered on 00:46; Start 07/21/16 at 00:30; Stop 07/21/16 at 00:33; Status DC Methylprednisolone Sodium Succinate (SoluMEDROL INJ) 40 mg Q8HR IVP Last administered on 07/22/16 06:16; Start 07/21/16 at 14:00; Stop 07/22/16 at 08:14; Status DC Oxycodone/ Acetaminophen (Percocet 5-325 Mg) 1 tab Q6H PRN PO PAIN > 3 Last administered on 07/23/16 02:03; Start 07/21/16 at 09:15 Pantoprazole Sodium (Protonix) 40 mg DAILY PO Last administered on 07/22/16 09: 22; Start 07/21/16 at 10:00 Methylprednisolone Sodium Succinate (SoluMEDROL INJ) 40 mg Q12H IVP Last administered on 07/22/16 22:12; Start 07/22/16 at 09:00 A/P Assessment and Plan A/P Acute respiratory failure/COPD exacerbation - improving. Chest xray shows Minimal basilar atelectasis -Consulted health physicist -switch to po prednisone -switch to po abx -Duonebs ordered -walk test performed; couldn't finish the test- will order ABG today ( on RA ). - might need sleep study as outpatient. Lactic Acidosis, likely due to hypoxia Labs: Lactic 4.6, down to 2.3 -NS bolus given in ED -Antibiotics as above Hypomagnesium-resolved HTN, chronic -resume home meds upon discharge. DM, chronic -Accu checks AC/HS with SSI -Restarted home Levemir - blood sugar levels expected to improve as steroids being tapered off. CKD, chronic stage III Labs: Creatine 1.3, baseline 2.0 -Home BP meds -Trend creatine -Avoid nephrotoxic drugs Neuropathy, chronic: reordered home medications Lyrica Anxiety, chronic: reordered home medications Cymbalta DVT prophylaxis: Heparin GI prophylaxis: Protonix Discharge Planning likely dc home today- see med list. f/u; pcp and pulmonary. d/w the patient and RN. time spent 35 min. Shannan Taveras MD Jul 23, 2016 09:01
[2016-07-23] MEDS ORDERED: ZITH250T PO (09:04)
[2016-07-23] MEDS ORDERED: VENTAER INH (09:04)
[2016-07-23] MEDS ORDERED: PRED5TAB PO (09:04)
[2016-07-23] MEDS ORDERED: SYMB160A INH (09:04)
[2016-07-23] MEDS ORDERED: CEFT500T3 PO (09:04)
--- NOTE | 2016-07-23 09:04 | HHI.DCPOC ---
Discharge Care Plan Diagnosis: (1) COPD with exacerbation Your Health Problems Are: Cough Shortness of Breath Goals to Promote Your Health * To prevent worsening of your condition and complications * To maintain your health at the optimal level Directions to Meet Your Goals Take your medications as prescribed Follow your dietary instruction Follow activity as directed Keep your appointments as scheduled Take your immunizations and boosters as scheduled If your symptoms worsen call your PCP, if no PCP go to Urgent Care Center or Emergency Room Smoking is Dangerous to Your Health. Avoid second hand smoke Call the 24-hour hour crisis hotline for domestic abuse at Shannan Taveras MD Jul 23, 2016 09:04
--- NOTE | 2016-07-23 09:06 | HHI.DS ---
Discharge Summary Admission Date Jul 20, 2016 at 04:31 Discharge Date: Jul 23, 2016 Admitting Diagnosis COPD exacerbation, hypoxemia on RA, lactic acidosis (1) Acute respiratory failure ICD Code: J96.00 Diagnosis: Principal (2) Acute exacerbation of chronic obstructive pulmonary disease ICD Code: J44.1 Diagnosis: Principal (3) Lactic acid acidosis ICD Code: E87.2 Diagnosis: Principal (4) Leukocytosis ICD Code: D72.829 Diagnosis: Principal (5) Hypomagnesemia ICD Code: E83.42 Diagnosis: Secondary (6) Hypertension ICD Code: I10 Diagnosis: Secondary (7) Diabetes ICD Code: E11.9 Diagnosis: Secondary (8) CKD (chronic kidney disease), stage II ICD Code: N18.2 Diagnosis: Secondary Procedures none Brief History - From Admission 66 y/o male with a history of COPD, Type 2 DM, neuropathy, CKD stage II, Asthma , anxiety, hyperlipidemia and obesity presented to the ED with complaints of SOB for the last few days. Patient states he has been out of his medications for the last 3 days and feels very anxious and short of breath. He states he has had a couple of episodes of wheezing and has increased edema in his lower extremities. He states for the last few days he has had a cough with yellow sputum production. He denies any fever, chills or chest pain. Arrival to the ED he was found to have O2 sats in the 70's, he was then placed on bipap. At one time he was weened down to 4L NC but then became hypoxic again and was placed back on bipap. When patient was assessed he was on bipap and states he was feeling better. 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 CBC/BMP: 07/20/16 0220 07/21/16 0607 Significant Findings Laboratory Tests Test 07/21/16 06:07 Blood Urea Nitrogen 29 MG/DL (7-18) Creatinine 1.43 MG/DL (0.60-1.30) Estimat Glomerular Filtration 49 ML/MIN (>89) Rate Random Glucose 352 MG/DL (74-106) PE at Discharge GENERAL: This is a well-nourished, well-developed patient, in no apparent distress. CARDIOVASCULAR: Regular rate and regular rhythm without murmurs, gallops, or rubs. RESPIRATORY: wheezing has much improved. GASTROINTESTINAL: Abdomen soft, non-tender, nondistended. Normal, active bowel sounds MUSCULOSKELETAL: Extremities without clubbing, cyanosis, or edema. NEURO: Alert & Oriented x4 to person, place, time, situation. Moves all ext x4 Hospital Course Acute respiratory failure/COPD exacerbation - improving. Chest xray shows Minimal basilar atelectasis -Consulted sales service route manager -switch to po prednisone -switch to po abx -Duonebs ordered -walk test performed; couldn't finish the test- will order ABG today ( on RA ). - might need sleep study as outpatient. Lactic Acidosis, likely due to hypoxia Labs: Lactic 4.6, down to 2.3 -NS bolus given in ED -Antibiotics as above Hypomagnesium-resolved HTN, chronic -resume home meds upon discharge. DM, chronic -Accu checks AC/HS with SSI -Restarted home Levemir - blood sugar levels expected to improve as the steroid being tapered off. CKD, chronic stage III Labs: Creatine 1.3, baseline 2.0 -Home BP meds -Trend creatine -Avoid nephrotoxic drugs Neuropathy, chronic: reordered home medications Lyrica Anxiety, chronic: reordered home medications Cymbalta DVT prophylaxis: Heparin GI prophylaxis: Protonix Pt Condition on Discharge: Good Discharge Disposition: Discharge Home Discharge Time: > 30 minutes Discharge Instructions DIET: Follow Instructions for: Heart Healthy Diet, Diabetic Diet Activities you can perform: Regular-No Restrictions Follow up Referrals: PCP Follow-up Pulmonology New Medications: Azithromycin (Zithromax) 250 Mg Tab 250 MG PO DAILY Infection Days 3 Ref 0 TAB Cefuroxime (Ceftin) 500 Mg Tab 500 MG PO BID Infection Days 5 Ref 0 TAB Prednisone (Prednisone) 5 Mg Tab 5 MG PO DIRECTED 40 mg po daily for two days then 30 mg po daily for two days then 20 mg po daily for two days then 10 mg po daily for two days then 5 mg po daily for two days then stop. copd Days 10 Ref 0 TAB Continued Medications: Albuterol 18 GM Inh (Ventolin Hfa 18 GM Inh) 90 Mcg/Act Aer 2 PUFF INH Q4H PRN SHORTNESS OF BREATH #1 Ref 0 INHALER (This prescription has been renewed) Budesonide-Formoterol Inh (Symbicort Inh) 160-4.5 Mcg/Act Aero 2 PUFF INH Q12HR copd #1 Ref 0 INHALER (This prescription has been renewed) Duloxetine DR (Duloxetine DR) 30 Mg Capdr 30 MG PO DAILY #30 Ref 0 CAP Insulin Detemir Inj (Levemir Inj) 1,000 unit/ 10 ML Vial 30 UNITS SQ BID Do not mix with any other Insulin. Blood Sugar Management Ref 0 VIAL Lisinopril (Lisinopril) 40 Mg Tab 40 MG PO DAILY Blood Pressure Management #30 Ref 0 TAB Losartan (Cozaar) 25 Mg Tab 25 MG PO DAILY Blood Pressure Management #30 Ref 0 TAB Pregabalin (Lyrica) 200 Mg Cap 200 MG PO TID #90 Ref 0 CAP Shannan Taveras MD Jul 23, 2016 09:06
[2016-07-23 10:24] LABS: BLOOD GAS BASE EXCESS -8.1 mmol/L (-2-2); BLOOD GAS CARBOXYHEMOGLOBIN 1.5 % (0-4); BLOOD GAS HCO3 16 mmol/L (22-26); BLOOD GAS METHEMOGLOBIN 1.2 % (0-2); BLOOD GAS O2 HGB SATURATION 95 % (90-100); BLOOD GAS OXYGEN CONTENT 16.5 Vol % (12.0-20.0); BLOOD GAS PCO2 28 mmHg (38-42); BLOOD GAS PO2 95 mmHg (61-120); BLOOD GAS TOTAL HGB 12.3 G/DL (12.0-16.0); TEMP CORR TO 98.6
[2016-07-23 10:27] LABS: CRITICAL VALUE YES
[2016-07-23 10:28] LABS: DRAW SITE RT RADIAL; NUMBER OF ARTERIAL PUNCTURES 1; OXYGEN DEVICE Room Air; STAT YES; ULNAR PULSE PRESENT
[2016-07-24 19:18] LABS: CRITICAL VALUE YES
[2016-07-24 19:19] LABS: CRITICAL VALUE YES
== END 2016-07-23 12:29 | disposition home or self-care (01) | DRG 189 ==
LOC: NEPC 01:50 → NEDA 04:31 → HCIN 08:18
PROVIDERS: ADMIT Internal Medicine; ATTEND Internal Medicine
PROC: 5A09357 Assistance with Respiratory Ventilation, Less than 24 Consecutive Hours, Continuous Positive Airway Pressure (ICD-10-PCS; principal; 2016-07-20)
DX: J96.01 Acute respiratory failure with hypoxia (principal); J44.1 Chronic obstructive pulmonary disease with (acute) exacerbation; E87.2 Acidosis; E11.22 Type 2 diabetes mellitus with diabetic chronic kidney disease; E11.40 Type 2 diabetes mellitus with diabetic neuropathy, unspecified; J98.11 Atelectasis; F41.9 Anxiety disorder, unspecified; J45.909 Unspecified asthma, uncomplicated; N18.2 Chronic kidney disease, stage 2 (mild); I12.9 Hypertensive chronic kidney disease with stage 1 through stage 4 chronic kidney disease, or unspecified chronic kidney disease; M19.90 Unspecified osteoarthritis, unspecified site; E66.01 Morbid (severe) obesity due to excess calories; F32.9 Major depressive disorder, single episode, unspecified; E78.5 Hyperlipidemia, unspecified; E83.42 Hypomagnesemia; J20.9 Acute bronchitis, unspecified; G47.30 Sleep apnea, unspecified; Z87.442 Personal history of urinary calculi; Z87.891 Personal history of nicotine dependence; Z86.14 Personal history of Methicillin resistant Staphylococcus aureus infection; Z79.4 Long term (current) use of insulin; Z85.828 Personal history of other malignant neoplasm of skin
CPT/HCPCS: 36600; 71010; 80048; 80053; 82550; 82552; 82805; 82948; 83605; 83735; 83880; 84484; 85025; 85610; 85730; 87040; 87070; 87205; 93005; 94002; 94003; 94640; 94664; 96365; 96367; 96375; C9113; J0456; J0696; J1644; J1815; J2060; J2270; J2405; J2920; J2930; J3475; J7030; J7040; J7050